=== PATIENT | male | born 1945 | race Caucasian/White ===

== ENCOUNTER 2017-10-14 12:03 | Inpatient (IN) | payer OTHER, MEDICAID, MEDICARE ==
[2017-10-14] VITALS (7 sets, daily range): BP systolic 97–124; BP diastolic 61–73; PULSE 89–104; RESP 18–20; TEMP 96.7–98.1; O2SAT 93–97
[~2017-10-14] VITALS: Ht 180.3 cm; Wt 86.0 kg
[2017-10-14] MEDS ORDERED: SODIUM CHLOR 0.9% 1000 ML INJ 1,000 ML IV ONE ×2 (12:15→12:45)
--- NOTE | 2017-10-14 12:39 | PD ---
HPI Chief Complaint: General Weakness Time Seen by Provider: 12:10 Travel History International Travel<30 days: No Contact w/Intl Traveler<30days: No Traveled to known affect area: No History of Present Illness HPI 72-year-old male the presents to the ED for evaluation of generalized weakness. Patient apparently was found by landlord on his home dischargeable in been able to move. 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 Patient apparently has had a couple falls last one about 3 days ago and he call ambulance to get him back into his bed. Per report given by ambulance apparently patient was on the floor and landlord did not feel comfortable lifting them up so they called the ambulance. Ambulance showed into the house and per the report of the apartment is completely in this repair. Patient apparently had feces as well as urine on his clothing as well as on his bed. Patient himself denies any medical issues. He does appear to be somewhat encephalopathic. Patient also appears to be yellow in skin color as well as on the eye color. I asked the patient if he has ever been told that he has jaundice and he tells me now. Per patient this is new. He is able to answer some questions but does appear to go in and out of confusion. He does tell me that he has not eaten or drinking anything in some time. He cannot really quantify how long. He does have bruises on his left rib cage. He denies any pain of any kind. He is smells heavily of feces and urine. He has no medical history recently and has never been here before. Per patient he takes no medications that he stays in bed because he cannot get up on his own. PFSH Past Medical History Cancer: Yes (prostate) ?: Not Past Surgical History Appendectomy: Yes Social History Alcohol Use: No Tobacco Use: No Substance Use: No Allergies-Medications (Allergen,Severity, Reaction): Coded Allergies: No Known Allergies (Unverified , 10/14/17) Reported Meds & Prescriptions Reported Meds & Active Scripts Active Active Prescriptions or Reported Medications Unobtainable Review of Systems ROS Limitations: Poor Historian Except as stated in HPI: all other systems reviewed are Neg Physical Exam Exam Limitations: Poor Historian Narrative GENERAL: SKIN: Warm and dry. Jaundice noted on the sclera of the eyes as well as in the skin. HEAD: Atraumatic. Normocephalic. EYES: Pupils equal and round 4 mm reactive to light and accommodation. No scleral icterus. No injection or drainage. ENT: No nasal bleeding or discharge. Mucous membranes pink but dry. Tongue is midline. No blood deviation. NECK: Trachea midline. No JVD. CARDIOVASCULAR: Regular rate and rhythm. No murmurs, S3, S4. RESPIRATORY: No accessory muscle use. Clear to auscultation. Breath sounds equal bilaterally. GASTROINTESTINAL: Abdomen soft, non-tender, nondistended. Hepatic and splenic margins not palpable. MUSCULOSKELETAL: Extremities without clubbing, cyanosis, or edema. No obvious deformities. Full range of motion of the upper and lower extremities bilaterally. 2+ pulses bilaterally. NEUROLOGICAL: Awake and alert. No obvious cranial nerve deficits. Motor grossly within normal limits. Five out of 5 muscle strength in the arms and legs. Normal speech. PSYCHIATRIC: Appropriate mood and affect; insight and judgment normal. Data Data Last Documented VS Vital Signs Date Time Temp Pulse Resp B/P (MAP) Pulse Ox O2 Delivery O2 Flow Rate FiO2 10/14/17 16:13 92 18 123/70 (87) 95 Room Air 10/14/17 12:25 98.1 Orders Orders Electrocardiogram (10/14/17 12:15) Complete Blood Count With Diff (10/14/17 12:15) Comprehensive Metabolic Panel (10/14/17 12:15) Ckmb (Isoenzyme) Profile (10/14/17 12:15) Troponin I (10/14/17 12:15) Prothrombin Time / Inr (Pt) (10/14/17 12:15) Act Partial Throm Time (Ptt) (10/14/17 12:15) Blood Culture (10/14/17 12:15) Lipase (10/14/17 12:15) Urinalysis - C+S If Indicated (10/14/17 12:15) Magnesium (Mg) (10/14/17 12:15) Thyroid Stimulating Hormone (10/14/17 12:15) Chest, Single Ap (10/14/17 12:15) Ct Brain W/O Iv Contrast(Rout) (10/14/17 12:15) Iv Access Insert/Monitor (10/14/17 12:15) Ecg Monitoring (10/14/17 12:15) Oximetry (10/14/17 12:15) Orthostatic Vital Signs (10/14/17 12:15) Lactic Acid Sepsis Protocol (10/14/17 12:15) C Diff Toxin Pcr (10/14/17 12:15) Sodium Chlor 0.9% 1000 Ml Inj (Ns 1000 M (10/14/17 12:15) Type And Screen (10/14/17 12:32) Sodium Chlor 0.9% 1000 Ml Inj (Ns 1000 M (10/14/17 12:45) Piperacil-Tazo 3.375 Gm Premix (Zosyn 3. (10/14/17 12:45) Vancomycin Inj (Vancomycin Inj) (10/14/17 12:45) Us Abdomen Gallbladder (10/14/17 ) CKMB (10/14/17 12:26) CKMB% (10/14/17 12:26) Direct Bilirubin (10/14/17 13:38) Ct Abd/Pel W/O Iv Contrast (10/14/17 ) Admit Order (Ed Use Only) (10/14/17 16:19) Consult Gastroenterology (10/14/17 ) Labs Laboratory Tests Test 10/14/17 12:26 10/14/17 15:35 White Blood Count 17.8 TH/MM3 Red Blood Count 4.26 MIL/MM3 Hemoglobin 13.6 GM/DL Hematocrit 39.7 % Mean Corpuscular Volume 93.2 FL Mean Corpuscular Hemoglobin 31.8 PG Mean Corpuscular Hemoglobin Concent 34.1 % Red Cell Distribution Width 14.6 % Platelet Count 118 TH/MM3 Mean Platelet Volume 13.0 FL Neutrophils (%) (Auto) 90.3 % Lymphocytes (%) (Auto) 5.0 % Monocytes (%) (Auto) 2.8 % Eosinophils (%) (Auto) 1.6 % Basophils (%) (Auto) 0.3 % Neutrophils # (Auto) 16.1 TH/MM3 Lymphocytes # (Auto) 0.9 TH/MM3 Monocytes # (Auto) 0.5 TH/MM3 Eosinophils # (Auto) 0.3 TH/MM3 Basophils # (Auto) 0.1 TH/MM3 CBC Comment DIFF FINAL Differential Comment Prothrombin Time 15.6 SEC Prothromb Time International Ratio 1.5 RATIO Activated Partial Thromboplast Time 28.6 SEC Blood Urea Nitrogen 42 MG/DL Creatinine 1.34 MG/DL Random Glucose 182 MG/DL Total Protein 6.4 GM/DL Albumin 2.1 GM/DL Calcium Level 9.1 MG/DL Magnesium Level 2.7 MG/DL Alkaline Phosphatase 251 U/L Aspartate Amino Transf (AST/SGOT) 60 U/L Alanine Aminotransferase (ALT/SGPT) 55 U/L Total Bilirubin 13.1 MG/DL Sodium Level 144 MEQ/L Potassium Level 3.0 MEQ/L Chloride Level 107 MEQ/L Carbon Dioxide Level 25.3 MEQ/L Anion Gap 12 MEQ/L Estimat Glomerular Filtration Rate 52 ML/MIN Lactic Acid Level 3.5 mmol/L 2.9 mmol/L Total Creatine Kinase 102 U/L Creatine Kinase MB 3.4 NG/ML Troponin I LESS THAN 0.02 NG/ML Lipase 94 U/L Thyroid Stimulating Hormone 3rd Gen 0.166 uIU/ML MDM Medical Decision Making Medical Screen Exam Complete: Yes Emergency Medical Condition: Yes Medical Record Reviewed: Yes Interpretation(s) EKG shows sinus rhythm with no sign of acute ischemia and arrhythmia but by me and attending. Last Impressions Head CT 10/14/175 Signed Impressions: Service Date/Time: Saturday, October 14, 2017 13:34 - CONCLUSION: No acute intracranial findings Juan Alberto Bertrand MD Chest X-Ray 10/14/175 Signed Impressions: Service Date/Time: Saturday, October 14, 2017 12:52 - CONCLUSION: No acute cardio pulmonary process. Jeyson Jenkins MD Gall Bladder Ultrasound 10/14/17 0000 Signed Impressions: Service Date/Time: Saturday, October 14, 2017 13:38 - CONCLUSION: 1. Nonvisualization of the gallbladder. Limited visualization of the pancreas. 2. Otherwise negative. Jeyson Jenkins MD Abdomen/Pelvis CT 10/14/17 0000 Signed Impressions: Service Date/Time: Saturday, October 14, 2017 14:27 - CONCLUSION: 1. Liver is incompletely evaluated on the noncontrasted study. Multiple hypodensities near the ok hepatis require further evaluation. These could represent multiple cysts or mass lesions. Ut or contrasted CT or MRI of the abdomen would be recommended. 2. In addition, there is a questionable stone in the expected location of the gallbladder fossa with possible additional 1.1 cm rim calcified stone in the CBD. Anatomic detail is again limited. MRCP of the abdomen could be performed for further characterization. 3. Nonobstructing 6 mm stone in the superior pole of the right kidney. 4. Prominent prostate. 5. 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 Jeyson Jenkins MD CBC & BMP Diagram 10/14/17 12:26 Total Protein 6.4, Albumin 2.1 L, Calcium Level 9.1, Magnesium Level 2.7 H, Alkaline Phosphatase 251 H, Aspartate Amino Transf (AST/SGOT) 60 H, Alanine Aminotransferase (ALT/SGPT) 55, Total Bilirubin 13.1 H troponin and CKMB negative EKG shows sinus rhythm with no sign of acute ischemia and arrhythmia read by me and attending. Lipase within normal limits. Differential Diagnosis Dehydration versus failure to thrive versus jaundice versus acute liver failure versus hemolysis versus hemolytic anemia versus GI bleed versus sepsis versus rhabdomyolysis versus hepatitis Narrative Course 72-year-old male that presents to the ED for evaluation of weakness. Patient was properly examined and was found to have signs and symptoms very concerning for what appears to be likely acute liver failure with failure to thrive. Patient is very icterus and jaundice on exam. Hemoccult was done and was indeterminate but no sign of bleeding noted on the rectum otherwise. At this time labs and imaging were ordered. Patient does appear to be very dry and his oral mucosa appears to be very dry as well. He will be given IV fluids. His blood pressure is also low. She has had multiple falls and he does have bruising from the falls more noted on the left rib cage. Imaging was ordered as well. No sign of abdominal discomfort or pain or hematoma. Labs and imaging showed severely elevated bilirubin as well as what appears to be sepsis with lactic acidosis and elevated white blood cell count. Patient will start antibiotics. At this time recommendations for admission. CT did show multiple masses on the liver concerning for possible tumors. I cannot rule out a stone on the tube. MRCP recommended per radiologist. Case discussed with my attending who agrees with plan. Patient will be admitted. Case discussed with Dr ochoa agreed to admission. GI consult was placed by me. [facility] Point of Care Internal Pos. & Neg. Controls: Passed Fecal Specimen Occult Blood: Positive (indetermiate, dark but not blue per my attending Dr traore) Sepsis Criteria SIRS Criteria (2 or more): Heart rate over 90, WBC > 53038, < 4000 or > 10% bands Sepsis Criteria (SIRS+source): Infect source susp/known Severe Sepsis (+one): Lactate >2 Criteria Outcome: Meets sepsis criteria, Meets severe sepsis criteria Diagnosis Primary Impression: Sepsis Qualified Codes: A41.9 - Sepsis, unspecified organism Additional Impressions: Elevated bilirubin Liver masses Admitting Information Admitting Physician Requests: Admit Scripts Unable to Obtain Active Prescriptions or Reported Meds Lonny Thomason October 14, 2017 12:39
[2017-10-14 12:43] LABS: AUTOMATED NEUTROPHIL # 16.1 TH/MM3 (1.8-7.7); BASOPHIL # 0.1 TH/MM3 (0-0.2); BASOPHIL % 0.3 % (0.0-2.0); EOSINOPHIL # 0.3 TH/MM3 (0-0.4); EOSINOPHIL % 1.6 % (0.0-4.0); HEMATOCRIT 39.7 % (39.0-51.0); HEMOGLOBIN 13.6 GM/DL (13.0-17.0); LYMPHOCYTE # 0.9 TH/MM3 (1.0-4.8); MEAN CELL VOLUME 93.2 FL (80.0-100.0); MEAN CORPUSCULAR HEMOGLOBIN 31.8 PG (27.0-34.0); MEAN CORPUSCULAR HGB CONC 34.1 % (32.0-36.0); MONO % 2.8 % (0.0-8.0); MONOCYTE # 0.5 TH/MM3 (0-0.9); NEUT % 90.3 % (16.0-70.0); PLATELET COUNT 118 TH/MM3 (150-450); RED BLOOD COUNT 4.26 MIL/MM3 (4.50-5.90); RED CELL DISTRIBUTION WIDTH 14.6 % (11.6-17.2); WHITE BLOOD COUNT 17.8 TH/MM3 (4.0-11.0)
[2017-10-14] MEDS ORDERED: PIPERACIL-TAZO 3.375 GM PREMIX 50 ML IV ONE (12:45)
[2017-10-14] MEDS ORDERED: VANCOMYCIN INJ 1,000 MG in SODIUM CHLOR 0.9% 250 ML INJ 250 ML IV ONE (12:45)
[2017-10-14 12:51] LABS: INTERNATIONAL NORMALIZED RATIO 1.5 RATIO; PROTHROMBIN TIME - PATIENT 15.6 SEC (9.8-11.6)
[2017-10-14 13:05] LABS: LACTIC ACID SEPSIS PROTOCOL 3.5 mmol/L (0.4-2.0)
--- NOTE | 2017-10-14 13:19 | RADRPT ---
EXAM DATE/TIME: 10/14/2017 12:52 [facility] COMPARISON: No previous studies available for comparison. INDICATIONS : Fever. MEDICAL HISTORY : Carcinoma, prostatic. SURGICAL HISTORY : Appendectomy. ENCOUNTER: Initial ACUITY: 1 day PAIN SCORE: 0/10 LOCATION: Bilateral chest FINDINGS: A single view of the chest demonstrates the lungs to be symmetrically aerated without evidence of mas s, infiltrate or effusion. The cardiomediastinal contours are unremarkable. Osseous structures are intact with some degenerative spurring of the dorsal spine. CONCLUSION: No acute cardio pulmonary process. Jeyson Jenkins MD on October 14, 2017 at 13:16 Board Certified Radiologist. This report was verified electronically.
[2017-10-14 13:26] LABS: ALBUMIN 2.1 GM/DL (3.4-5.0); ALKALINE PHOSPHATASE 251 U/L (45-117); ALT (GPT) 55 U/L (12-78); AST (GOT) 60 U/L (15-37); BICARBONATE 25.3 MEQ/L (21.0-32.0); BLOOD UREA NITROGEN 42 MG/DL (7-18); CALCIUM 9.1 MG/DL (8.5-10.1); CHLORIDE 107 MEQ/L (98-107); CREATININE 1.34 MG/DL (0.60-1.30); GLOMERULAR FILTRATION RATE 52 ML/MIN (>89); GLUCOSE,RANDOM 182 MG/DL (74-106); MAGNESIUM 2.7 MG/DL (1.5-2.5); SODIUM (NA) 144 MEQ/L (136-145); TOTAL BILIRUBIN ADULT 13.1 MG/DL (0.2-1.0); TOTAL PROTEIN 6.4 GM/DL (6.4-8.2); TROPONIN I LESS THAN 0.02 NG/ML (0.02-0.05)
--- NOTE | 2017-10-14 14:14 | RADRPT ---
EXAM DATE/TIME: 10/14/2017 13:34 [facility] COMPARISON: No previous studies available for comparison. INDICATIONS : Weakness. RADIATION DOSE: 45.81 CTDIvol (mGy) MEDICAL HISTORY : Carcinoma, prostate. SURGICAL HISTORY : None. ENCOUNTER: Initial ACUITY: 1 day PAIN SCALE: 0/10 LOCATION: cranial TECHNIQUE: Multiple contiguous axial images were obtained of the head. Using automated exposure control and adj ustment of the mA and/or kV according to patient size, radiation dose was kept as low as reasonably a chievable to obtain optimal diagnostic quality images. DICOM format image data is available electro nically for review and comparison. FINDINGS: Ventricles are symmetric and normal. No abnormal extra-axial fluid collections are identified. There is no evidence of intracranial hemorrhage or mass. There is nothing to suggest acute infarction. The extracranial structures are benign and intact. Minimal polypoid mucosal thickening noted in the right maxillary sinus. CONCLUSION: No acute intracranial findings Juan Alberto Bertrand MD on October 14, 2017 at 14:11 Board Certified Radiologist. This report was verified electronically.
--- NOTE | 2017-10-14 15:15 | RADRPT ---
EXAM DATE/TIME: 10/14/2017 13:38 [facility] COMPARISON: No previous studies available for comparison. INDICATIONS : Right upper quadrant pain. MEDICAL HISTORY : Carcinoma, prostate. SURGICAL HISTORY : Appendectomy. ENCOUNTER: Initial ACUITY: 1 day PAIN SCORE: 2/10 LOCATION: Right upper quadrant MEASUREMENTS: LIVER: 17.2 cm length COMMON DUCT: 3 mm RIGHT KIDNEY: 11.2 x 5.3 x 1.5 cm FINDINGS: LIVER: Normal echotexture without focal lesion or ductal dilatation. COMMON DUCT: No intraluminal mass or stone visualized. GALLBLADDER: Not visualized PANCREAS: The visualized portions are within normal limits. RIGHT KIDNEY: No evidence of hydronephrosis, stone, or mass. CONCLUSION: 1. Nonvisualization of the gallbladder. Limited visualization of the pancreas. 2. Otherwise negative. Jeyson Jenkins MD on October 14, 2017 at 15:12 Board Certified Radiologist. This report was verified electronically.
--- NOTE | 2017-10-14 15:48 | RADRPT ---
EXAM DATE/TIME: 10/14/2017 14:27 [facility] COMPARISON: US ABDOMEN - GALLBLADDER, October 14, 2017, 13:38. INDICATIONS : Found on floor, patient is jaundice ORAL CONTRAST: No oral contrast ingested. RADIATION DOSE: 13.87 CTDIvol (mGy) MEDICAL HISTORY : Carcinoma, prostate. SURGICAL HISTORY : Appendectomy. ENCOUNTER: Initial ACUITY: 1 day PAIN SCALE: Non-responsive LOCATION: abdomen TECHNIQUE: Volumetric scanning of the abdomen and pelvis was performed. Using automated exposure control and ad justment of the mA and/or kV according to patient size, radiation dose was kept as low as reasonably achievable to obtain optimal diagnostic quality images. DICOM format image data is available electro nically for review and comparison. FINDINGS: LOWER LUNGS: The visualized lower lungs are clear. LIVER: Multiple hypodense areas in the right hepatic lobe near the ok hepatis a nonspecific. Anatomic det ail of the ok hepatis and gallbladder region is extremely limited due to motion artifact. There is a calcific density measuring 1.2 cm in diameter which may be in the region of the gallbladder fundus and an additional 1.1 cm rim calcified stone in the expected location of the CBD. The CBD at the por ta hepatis may be somewhat prominent. The due to motion artifact, the gallbladder itself is very diff icult to identify. SPLEEN: Normal size without lesion. PANCREAS: Fatty replacement of the pancreatic parenchyma. KIDNEYS: Normal in size and shape. 6 mm nonobstructing stone in the superior pole of the right kidney. ADRENAL GLANDS: Within normal limits. VASCULAR: There is no aortic aneurysm. BOWEL/MESENTERY: The stomach, small bowel, and colon demonstrate no acute abnormality. There is no free intraperitone al air or fluid. 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 ABDOMINAL WALL: Within normal limits. RETROPERITONEUM: There is no lymphadenopathy. BLADDER: Multiple gallbladder stones.. REPRODUCTIVE: Prostate is prominent at 5.6 cm with dystrophic type calcification. INGUINAL: There is no lymphadenopathy or hernia. MUSCULOSKELETAL: Probable bone islands in the left ilium. Facet hypertrophy in the lower lumbar spine and lumbosacral junction. CONCLUSION: 1. Liver is incompletely evaluated on the noncontrasted study. Multiple hypodensities near the ok hepatis require further evaluation. These could represent multiple cysts or mass lesions. Ut or contr asted CT or MRI of the abdomen would be recommended. 2. In addition, there is a questionable stone in the expected location of the gallbladder fossa with possible additional 1.1 cm rim calcified stone in the CBD. Anatomic detail is again limited. MRCP of the abdomen could be performed for further characterization. 3. Nonobstructing 6 mm stone in the superior pole of the right kidney. 4. Prominent prostate. 5. 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 Jeyson Jenkins MD on October 14, 2017 at 15:31 Board Certified Radiologist. This report was verified electronically.
--- NOTE | 2017-10-14 16:10 | PD ---
Data Data Last Documented VS Vital Signs Date Time Temp Pulse Resp B/P (MAP) Pulse Ox O2 Delivery O2 Flow Rate FiO2 10/14/17 13:00 104 20 97 Room Air 10/14/17 12:25 98.1 Orders Orders Electrocardiogram (10/14/17 12:15) Complete Blood Count With Diff (10/14/17 12:15) Comprehensive Metabolic Panel (10/14/17 12:15) Ckmb (Isoenzyme) Profile (10/14/17 12:15) Troponin I (10/14/17 12:15) Prothrombin Time / Inr (Pt) (10/14/17 12:15) Act Partial Throm Time (Ptt) (10/14/17 12:15) Blood Culture (10/14/17 12:15) Lipase (10/14/17 12:15) Urinalysis - C+S If Indicated (10/14/17 12:15) Magnesium (Mg) (10/14/17 12:15) Thyroid Stimulating Hormone (10/14/17 12:15) Chest, Single Ap (10/14/17 12:15) Ct Brain W/O Iv Contrast(Rout) (10/14/17 12:15) Iv Access Insert/Monitor (10/14/17 12:15) Ecg Monitoring (10/14/17 12:15) Oximetry (10/14/17 12:15) Orthostatic Vital Signs (10/14/17 12:15) Lactic Acid Sepsis Protocol (10/14/17 12:15) C Diff Toxin Pcr (10/14/17 12:15) Sodium Chlor 0.9% 1000 Ml Inj (Ns 1000 M (10/14/17 12:15) Type And Screen (10/14/17 12:32) Sodium Chlor 0.9% 1000 Ml Inj (Ns 1000 M (10/14/17 12:45) Piperacil-Tazo 3.375 Gm Premix (Zosyn 3. (10/14/17 12:45) Vancomycin Inj (Vancomycin Inj) (10/14/17 12:45) Us Abdomen Gallbladder (10/14/17 ) CKMB (10/14/17 12:26) CKMB% (10/14/17 12:26) Direct Bilirubin (10/14/17 13:38) Ct Abd/Pel W/O Iv Contrast (10/14/17 ) Labs Laboratory Tests Test 10/14/17 12:26 10/14/17 15:35 White Blood Count 17.8 TH/MM3 Red Blood Count 4.26 MIL/MM3 Hemoglobin 13.6 GM/DL Hematocrit 39.7 % Mean Corpuscular Volume 93.2 FL Mean Corpuscular Hemoglobin 31.8 PG Mean Corpuscular Hemoglobin Concent 34.1 % Red Cell Distribution Width 14.6 % Platelet Count 118 TH/MM3 Mean Platelet Volume 13.0 FL Neutrophils (%) (Auto) 90.3 % Lymphocytes (%) (Auto) 5.0 % Monocytes (%) (Auto) 2.8 % Eosinophils (%) (Auto) 1.6 % Basophils (%) (Auto) 0.3 % Neutrophils # (Auto) 16.1 TH/MM3 Lymphocytes # (Auto) 0.9 TH/MM3 Monocytes # (Auto) 0.5 TH/MM3 Eosinophils # (Auto) 0.3 TH/MM3 Basophils # (Auto) 0.1 TH/MM3 CBC Comment DIFF FINAL Differential Comment Prothrombin Time 15.6 SEC Prothromb Time International Ratio 1.5 RATIO Activated Partial Thromboplast Time 28.6 SEC Blood Urea Nitrogen 42 MG/DL Creatinine 1.34 MG/DL Random Glucose 182 MG/DL Total Protein 6.4 GM/DL Albumin 2.1 GM/DL Calcium Level 9.1 MG/DL Magnesium Level 2.7 MG/DL Alkaline Phosphatase 251 U/L Aspartate Amino Transf (AST/SGOT) 60 U/L Alanine Aminotransferase (ALT/SGPT) 55 U/L Total Bilirubin 13.1 MG/DL Sodium Level 144 MEQ/L Potassium Level 3.0 MEQ/L Chloride Level 107 MEQ/L Carbon Dioxide Level 25.3 MEQ/L Anion Gap 12 MEQ/L Estimat Glomerular Filtration Rate 52 ML/MIN Lactic Acid Level 3.5 mmol/L Total Creatine Kinase 102 U/L Creatine Kinase MB 3.4 NG/ML Troponin I LESS THAN 0.02 NG/ML Lipase 94 U/L Thyroid Stimulating Hormone 3rd Gen 0.166 uIU/ML [facility] Supervised Visit with MY: Yes Interpretation(s) Afebrile, mild tachycardia, normotensive Leukocytosis Thrombocytopenia Acute kidney injury Lactic acid is 3.5 Total bilirubin is 13 Last [address] 10/14/17 1215 Signed Impressions: Service Date/Time: Saturday, October 14, 2017 13:34 - CONCLUSION: No acute intracranial findings Juan Alberto Bertrand MD Chest X-Ray 10/14/17 1215 Signed Impressions: Service Date/Time: Saturday, October 14, 2017 12:52 - CONCLUSION: No acute cardio pulmonary process. Jeyson Jenkins MD Gall Bladder Ultrasound 10/14/17 0000 Signed Impressions: Service Date/Time: Saturday, October 14, 2017 13:38 - CONCLUSION: 1. Nonvisualization of the gallbladder. Limited visualization of the pancreas. 2. Otherwise negative. Jeyson Jenkins MD Abdomen/Pelvis CT 10/14/17 0000 Signed Impressions: Service Date/Time: Saturday, October 14, 2017 14:27 - CONCLUSION: 1. Liver is incompletely evaluated on the noncontrasted study. Multiple hypodensities near the ok hepatis require further evaluation. These could represent multiple cysts or mass lesions. Ut or contrasted CT or MRI of the abdomen would be recommended. 2. In addition, there is a questionable stone in the expected location of the gallbladder fossa with possible additional 1.1 cm rim calcified stone in the CBD. Anatomic detail is again limited. MRCP of the abdomen could be performed for further characterization. 3. Nonobstructing 6 mm stone in the superior pole of the right kidney. 4. Prominent prostate. 5. 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 Jeyson Jenkins MD Narrative Course The history, exam, and medical decision-making in the associated midlevel provider note were completed with my assistance. I reviewed and agree with the findings presented. I attest that I had a [id number] encounter with the patient on the same day, and personally performed and documented my assessment and findings in the medical record. *My assessment and Findings: This is a 72-year-old male who was found by his landlord having been weak and unable to ambulate. He has been falling frequently. He is ill-appearing, with temporal wasting and jaundiced on exam. He was placed on a monitor and an IV was established. Labs demonstrate a marked leukocytosis. Cultures were obtained and patient was started on broad- spectrum antibiotics. His lactic acid was 3.5. He received 2 L of IV fluid. CT demonstrates possible mass lesions in the liver as well as a calcified stone in the common bile duct both which could be explanations of the patient's jaundice. Patient will be admitted for continued GI evaluation and IV antibiotic therapy. Scripts Unable to Obtain Active Prescriptions or Reported Meds Moira Patel MD October 14, 2017 16:10
[2017-10-14] MEDS ORDERED: POTASSIUM BICARBONATE 25 MEQ EFFERVESCENT TAB PO ONE (17:15)
--- NOTE | 2017-10-14 17:42 | HHI.HP ---
[facility] Service [place] [facility] Primary Care Physician No Primary Care Physician Admission Diagnosis acute sepsis, acute jauncide, cholecystitis? Diagnoses: Chief Complaint: Generalized weakness Travel History International Travel<30 Days: No Contact w/Intl Traveler <30 Da: No Traveled to Known Affected Are: No Sepsis Criteria SIRS Criteria (2 or more): Heart rate over 90, WBC > 32197, < 4000 or > 10% bands Sepsis Criteria (SIRS+source): Infect source susp/known Severe Sepsis (+one): Lactate >2 Criteria Outcome: Meets severe sepsis criteria History of Present Illness Patient is a 72-year-old male who states he lives by himself in an apartment, no PCP who states that about 10 days prior to admission patient noted initially having diarrhea stools brown watery S with poor p.o. appetite. Patient denies any fever or chills however feels very weak. Finally yesterday he called his landlord who in turn when saw him called ambulance and was brought in here. When asked why she is he said that he needed to be here because I do not feel good. He states that on several occasions in the past his blood blood pressures were low. On evaluation here the ER was noted to be jaundiced with elevated white count. Patient admitted for further evaluation Patient states history of prostate surgery secondary to "enlarged prostate" Review of Systems Constitutional: COMPLAINS OF: Fever, Weight loss Endocrine: DENIES: Heat/cold intolerance, Polydipsia, Polyuria, Polyphagia Eyes: DENIES: Blurred vision, Diplopia, Eye inflammation, Eye pain, Vision loss , Photosensitivity, Double Vision Ears, nose, mouth, throat: DENIES: Tinnitus, Hearing loss, Vertigo, Nasal discharge, Oral lesions, Throat pain, Hoarseness, Ear Pain, Running Nose, Epistaxis, Sinus Pain, Toothache, Odynophagia Respiratory: DENIES: Apneas, Cough, Snoring, Wheezing, Hemoptysis, Sputum production, Shortness of breath Cardiovascular: DENIES: Chest pain, Palpitations, Syncope, Dyspnea on Exertion , PND, Lower Extremity Edema, Orthopnea, Claudication Gastrointestinal: COMPLAINS OF: Diarrhea Genitourinary: DENIES: Sexual dysfunction, Urinary frequency, Urinary incontinence, Urgency, Hematuria, Dysuria, Nocturia, Penile Discharge, Testicular Pain, Testicular Swelling Musculoskeletal: DENIES: Joint pain, Muscle aches, Stiffness, Joint Swelling, Back pain, Neck pain Integumentary: DENIES: Abnormal pigmentation, Nail changes, Pruritus, Rash Hematologic/lymphatic: DENIES: Bruising, Lymphadenopathy Immunologic/allergic: DENIES: Eczema, Urticaria Neurologic: DENIES: Abnormal gait, Headache, Localized weakness, Paresthesias, Seizures, Speech Problems, Tremor, Poor Balance Psychiatric: DENIES: Anxiety, Confusion, Mood changes, Depression, Hallucinations, Agitation, Suicidal Ideation, Homicidal Ideation, Delusions Past Family Social History Past Medical History Enlarged prostate Past Surgical History Prostate surgery Reported Medications Denies taking any medications Allergies: Coded Allergies: No Known Allergies (Unverified , 10/14/17) Family History Noncontributory Social History Patient states never smoked and never drank alcohol denies any history of substance abuse Physical Exam Vital Signs Vital Signs Date Time Temp Pulse Resp B/P (MAP) Pulse Ox O2 Delivery O2 Flow Rate FiO2 10/14/17 17:00 72 18 124/70 (88) 98 10/14/17 16:13 92 18 123/70 (87) 95 Room Air 10/14/17 13:00 104 20 97 Room Air 10/14/17 12:25 98.1 98 20 97/61 (73) 97 Room Air 10/14/17 12:25 90 18 98 Room Air 10/14/17 12:20 98.1 93 18 97/61 (73) 97 Physical Exam GENERAL: Weak looking, jaundiced awake and alert oriented 3, SKIN: No rashes, Cool and dry. HEAD: Atraumatic. Normocephalic. No temporal or scalp tenderness. EYES: Pupils equal round and reactive. Extraocular motions intact. Positive icteric nausea ENT: Nose without bleeding, Throat without erythema, tonsillar hypertrophy or exudate. Uvula midline. Airway patent. NECK: Trachea midline. No JVD or lymphadenopathy. Supple, nontender, no meningeal signs. CARDIOVASCULAR: Regular rhythm without murmurs, heart rate 105. no gallops, or rubs. RESPIRATORY: Clear to auscultation. Breath sounds equal bilaterally. No wheezes , rales, or rhonchi. GASTROINTESTINAL: Abdomen soft, non-tender, nondistended. Flabby, questionable fluid wave no guarding. No scrotal swelling or edema MUSCULOSKELETAL: Extremities without clubbing, cyanosis, or edema. No joint tenderness, effusion, or edema noted. No calf tenderness. Negative Homans sign bilaterally. NEUROLOGICAL: Awake and alert. Cranial nerves II through XII intact. Motor and sensory grossly within normal limits. Five out of 5 muscle strength in all muscle groups. Normal speech. Laboratory Laboratory Tests Test 10/14/17 12:26 10/14/17 15:35 White Blood Count 17.8 Red Blood Count 4.26 Hemoglobin 13.6 Hematocrit 39.7 Mean Corpuscular Volume 93.2 Mean Corpuscular Hemoglobin 31.8 Mean Corpuscular Hemoglobin Concent 34.1 Red Cell Distribution Width 14.6 Platelet Count 118 Mean Platelet Volume 13.0 Neutrophils (%) (Auto) 90.3 Lymphocytes (%) (Auto) 5.0 Monocytes (%) (Auto) 2.8 Eosinophils (%) (Auto) 1.6 Basophils (%) (Auto) 0.3 Neutrophils # (Auto) 16.1 Lymphocytes # (Auto) 0.9 Monocytes # (Auto) 0.5 Eosinophils # (Auto) 0.3 Basophils # (Auto) 0.1 CBC Comment DIFF FINAL Differential Comment Prothrombin Time 15.6 Prothromb Time International Ratio 1.5 Activated Partial Thromboplast Time 28.6 Blood Urea Nitrogen 42 Creatinine 1.34 Random Glucose 182 Total Protein 6.4 Albumin 2.1 Calcium Level 9.1 Magnesium Level 2.7 Alkaline Phosphatase 251 Aspartate Amino Transf (AST/SGOT) 60 Alanine Aminotransferase (ALT/SGPT) 55 Total Bilirubin 13.1 Sodium Level 144 Potassium Level 3.0 Chloride Level 107 Carbon Dioxide Level 25.3 Anion Gap 12 Estimat Glomerular Filtration Rate 52 Lactic Acid Level 3.5 2.9 Total Creatine Kinase 102 Creatine Kinase MB 3.4 Troponin I LESS THAN 0.02 Lipase 94 Thyroid Stimulating Hormone 3rd Gen 0.166 Date/Time Source Procedure Growth Status 10/14/17 12:26 Blood Peripheral Aerobic Blood Culture Pending Received 10/14/17 12:26 Blood Peripheral Anaerobic Blood Culture Pending Received Result Diagram: 10/14/17 1226 10/14/17 1226 Imaging Last Impressions Head CT 10/14/17 1215 Signed Impressions: Service Date/Time: Saturday, October 14, 2017 13:34 - CONCLUSION: No acute intracranial findings Juan Alberto Bertrand MD Chest X-Ray 10/14/17 1215 Signed Impressions: Service Date/Time: Saturday, October 14, 2017 12:52 - CONCLUSION: No acute cardio pulmonary process. Jeyson Jenkins MD Gall Bladder Ultrasound 10/14/17 0000 Signed Impressions: Service Date/Time: Saturday, October 14, 2017 13:38 - CONCLUSION: 1. Nonvisualization of the gallbladder. Limited visualization of the pancreas. 2. Otherwise negative. Jeyson Jenkins MD Abdomen/Pelvis CT 10/14/17 0000 Signed Impressions: Service Date/Time: Saturday, October 14, 2017 14:27 - CONCLUSION: 1. Liver is incompletely evaluated on the noncontrasted study. Multiple hypodensities near the ok hepatis require further evaluation. These could represent multiple cysts or mass lesions. Ut or contrasted CT or MRI of the abdomen would be recommended. 2. In addition, there is a questionable stone in the expected location of the gallbladder fossa with possible additional 1.1 cm rim calcified stone in the CBD. Anatomic detail is again limited. MRCP of the abdomen could be performed for further characterization. 3. Nonobstructing 6 mm stone in the superior pole of the right kidney. 4. Prominent prostate. 5. 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 Jeyson Jenkins MD Caprini VTE Risk Assessment Caprini VTE Risk Assessment: Mod/High Risk (score >= 2) VTE Pharm Contraindication: possible procedure Caprini Risk Assessment Model Point Value = 1 Point Value = 2 Point Value = 3 Point Value = 5 Age 41-60 Minor surgery BMI > 25 kg/m2 Swollen legs Varicose veins or History of unexplained or recurrent spontaneous Oral contraceptives or hormone replacement Sepsis (< 1 month) Serious lung disease, including pneumonia (< 1 month) Abnormal pulmonary function Acute myocardial infarction Congestive heart failure (< 1 month) History of inflammatory bowel disease Medical patient at bed rest Age 61-74 Arthroscopic surgery Major open surgery (> 45 min) Laparoscopic surgery (> 45 min) Malignancy Confined to bed (> 72 hours) Immobilizing plaster cast Central venous access Age >= 75 History of VTE Family history of VTE Factor V Leiden Prothrombin [id number] Lupus anticoagulant Anticardiolipin antibodies Elevated serum homocysteine Heparin-induced thrombocytopenia Other congenital or acquired thrombophilia Stroke (< 1 month) Elective arthroplasty Hip, pelvis, or leg fracture Acute spinal cord injury (< 1 month) Prophylaxis Regimen Total Risk Factor Score Risk Level Prophylaxis Regimen 0-1 Low Early ambulation 2 Moderate Order ONE of the following: *Sequential Compression Device (SCD) *Heparin 5000 units SQ BID 3-4 Higher Order ONE of the following medications: *Heparin 5000 units SQ TID *Enoxaparin/Lovenox 40 mg SQ daily (WT < 150 kg, CrCl > 30 mL/min) *Enoxaparin/Lovenox 30 mg SQ daily (WT < 150 kg, CrCl > 10-29 mL/min) *Enoxaparin/Lovenox 30 mg SQ BID (WT < 150 kg, CrCl > 30 mL/min) AND/OR *Sequential Compression Device (SCD) 5 or more Highest Order ONE of the following medications: *Heparin 5000 units SQ TID (Preferred with Epidurals) *Enoxaparin/Lovenox 40 mg SQ daily (WT < 150 kg, CrCl > 30 mL/min) *Enoxaparin/Lovenox 30 mg SQ daily (WT < 150 kg, CrCl > 10-29 mL/min) *Enoxaparin/Lovenox 30 mg SQ BID (WT < 150 kg, CrCl > 30 mL/min) AND *Sequential Compression Device (SCD) Assessment and Plan Assessment and Plan 72-year-old male presenting with generalized weakness cachexia poor p.o. appetite jaundice elevated LFTs Sepsis secondary to biliary pathology possible cholangitis rule out underlying malignancy. Start patient on IV Zosyn every 6 Follow LFTs Patient received 2 L IV bolus at ER. Start maintenance IV fluids 100 cc an hour Gastroenterology consult will defer to them whether to proceed with MRCP or ERCP Get alpha-fetoprotein Check UA Acute kidney injury secondary to sepsis and dehydration History of BPH Start IV fluids Monitor BMP closely. Olivo was placed by ER will keep Olivo to do accurate I&O's Hypokalemia replaced with p.o. potassium 1 IV fluids with potassium Case management for discharge planning Dietitian consult Teds and SCDs for now. Will hold off on chemical prophylaxis may need procedure tomorrow PPI for GI prophylaxis Code Status When asked about CODE STATUS about CPR. Patient states he wants to be shocked one-time Discussed Condition With Patient Physician Certification 2 Midnight Certification Type: Admission for Inpatient Services Order for Inpatient Services The services are ordered in accordance with Medicare regulations or non- Medicare payer requirements, as applicable. In the case of services not specified as inpatient-only, they are appropriately provided as inpatient services in accordance with the 2-midnight benchmark. Estimated LOS (days): 3 days is the estimated time the patient will need to remain in the hospital, assuming treatment plan goals are met and no additional complications. Post-Hospital Plan: Not yet determined Olman Friedman MD October 14, 2017 17:42
[2017-10-14 18:00] LABS: BILIRUBIN, URINE LARGE (NEG); BLOOD, URINE LARGE (NEG); GLUCOSE,URINE 100 mg/dL (NEG); KETONE, URINE TRACE mg/dL (NEG); NITRITE,URINE POS (NEG); URINE LEUKOCYTE ESTERASE LARGE (NEG)
[2017-10-14 18:12] LABS: AMORPHOUS SEDIMENT, URINE RARE; BACTERIA, URINE MANY /hpf; MUCUS URINE MANY /lpf (OCC)
[2017-10-14 18:13] LABS: URINE COLOR BROWN (YELLW/STRAW)
[2017-10-14] MEDS: D5-NS + KCL 20 MEQ INJ 1,000 ML IV SCH (18:56)
[2017-10-14] MEDS: PANTOPRAZOLE SOD 20 MG DELAYED RELEASE TAB PO SCH (18:59)
[2017-10-14] MEDS ORDERED: PHYTONADIONE 10 MG/ML VIAL SQ ONE (19:45)
[2017-10-15 00:25] VITALS: BP 116/65; PULSE 89; RESP 18; TEMP 98.8; O2SAT 95
[2017-10-15] MEDS: D5-NS + KCL 20 MEQ INJ 1,000 ML IV SCH (03:15)
[2017-10-15 07:25] LABS: AUTOMATED NEUTROPHIL # 11.5 TH/MM3 (1.8-7.7); BASOPHIL % 0.1 % (0.0-2.0); EOSINOPHIL # 0.1 TH/MM3 (0-0.4); EOSINOPHIL % 0.4 % (0.0-4.0); HEMATOCRIT 38.6 % (39.0-51.0); HEMOGLOBIN 12.9 GM/DL (13.0-17.0); LYMPH % 6.7 % (9.0-44.0); LYMPHOCYTE # 0.9 TH/MM3 (1.0-4.8); MEAN CELL VOLUME 94.4 FL (80.0-100.0); MEAN CORPUSCULAR HEMOGLOBIN 31.5 PG (27.0-34.0); MEAN CORPUSCULAR HGB CONC 33.3 % (32.0-36.0); MEAN PLATELET VOLUME 12.1 FL (7.0-11.0); MONOCYTE # 0.5 TH/MM3 (0-0.9); NEUT % 88.8 % (16.0-70.0); PLATELET COUNT 110 TH/MM3 (150-450); RED BLOOD COUNT 4.09 MIL/MM3 (4.50-5.90); RED CELL DISTRIBUTION WIDTH 15.1 % (11.6-17.2); WHITE BLOOD COUNT 12.9 TH/MM3 (4.0-11.0)
[2017-10-15 07:26] LABS: HEMATOCRIT 38.3 % (39.0-51.0); HEMOGLOBIN 12.7 GM/DL (13.0-17.0); MEAN CELL VOLUME 94.3 FL (80.0-100.0); MEAN CORPUSCULAR HEMOGLOBIN 31.4 PG (27.0-34.0); MEAN CORPUSCULAR HGB CONC 33.3 % (32.0-36.0); MEAN PLATELET VOLUME 12.2 FL (7.0-11.0); PLATELET COUNT 112 TH/MM3 (150-450); RED BLOOD COUNT 4.06 MIL/MM3 (4.50-5.90); RED CELL DISTRIBUTION WIDTH 15.4 % (11.6-17.2); WHITE BLOOD COUNT 13.3 TH/MM3 (4.0-11.0)
[2017-10-15 07:30] LABS: INTERNATIONAL NORMALIZED RATIO 1.4 RATIO; PROTHROMBIN TIME - PATIENT 13.7 SEC (9.8-11.6)
[2017-10-15 07:56] LABS: CARCINOEMBRYONIC ANTIGEN 3.1 NG/ML (0.2-5.0)
[2017-10-15 08:00] VITALS: BP 111/63; PULSE 77; RESP 18; TEMP 97.4; O2SAT 99
[2017-10-15 08:24] LABS: ALKALINE PHOSPHATASE 197 U/L (45-117); ALT (GPT) 44 U/L (12-78); AST (GOT) 35 U/L (15-37); BICARBONATE 26.2 MEQ/L (21.0-32.0); BLOOD UREA NITROGEN 36 MG/DL (7-18); CALCIUM 9.3 MG/DL (8.5-10.1); CHLORIDE 115 MEQ/L (98-107); CREATININE 0.93 MG/DL (0.60-1.30); GLOMERULAR FILTRATION RATE 80 ML/MIN (>89); GLUCOSE,RANDOM 154 MG/DL (74-106); SODIUM (NA) 151 MEQ/L (136-145); TOTAL BILIRUBIN ADULT 6.9 MG/DL (0.2-1.0)
[2017-10-15] MEDS ORDERED: POTASSIUM CHLORIDE 20 MEQ CONTROLLED RELEASE TAB PO ONE (09:00)
[2017-10-15] MEDS: PANTOPRAZOLE SOD 20 MG DELAYED RELEASE TAB PO SCH (09:04)
[2017-10-15] MEDS: INSULIN ASPART SUPPLEMENTAL SCALE SQ SCH ×3 (10:56→20:24)
[2017-10-15] MEDS ORDERED: DEXTROSE 50% IN WATER 50 ML VIAL(D50) IV PUSH PRN (11:00)
[2017-10-15] MEDS ORDERED: GLUCAGON 1 MG/ML VIAL OTHER PRN (11:00)
--- NOTE | 2017-10-15 11:13 | HHI.PR ---
Subjective Remarks The patient was resting comfortably in bed. He was about to go for MRI. He denied any abdominal pain. He said he has been losing weight since the . He has not been vomiting recently. Discussed with nursing at the bedside. Objective Vitals Vital Signs Date Time Temp Pulse Resp B/P (MAP) Pulse Ox O2 Delivery O2 Flow Rate FiO2 10/15/17 00:25 98.8 89 18 116/65 (82) 95 10/14/17 20:37 97.7 89 18 97/73 (81) 96 10/14/17 18:07 96.7 95 18 112/73 (86) 93 10/14/17 17:00 72 18 124/70 (88) 98 10/14/17 16:13 92 18 123/70 (87) 95 Room Air 10/14/17 13:00 104 20 97 Room Air 10/14/17 12:25 98.1 98 20 97/61 (73) 97 Room Air 10/14/17 12:25 90 18 98 Room Air 10/14/17 12:20 98.1 93 18 97/61 (73) 97 I/O 10/14/17 10/14/17 10/14/17 10/15/17 10/15/17 10/15/17 07:00 15:00 23:00 07:00 15:00 23:00 Intake Total 2050 ml 250 ml Output Total 1500 ml Balance 2050 ml 250 ml -1500 ml Intake IV Total 2050 ml 250 ml Output Urine Total 1500 ml # Bowel Movements 4 Result Diagram: 10/15/17 0632 10/15/17 0632 Imaging Last Impressions Head CT 10/14/175 Signed Impressions: Service Date/Time: Saturday, October 14, 2017 13:34 - CONCLUSION: No acute intracranial findings Juan Alberto Bertrand MD Chest X-Ray 10/14/171214 Signed Impressions: Service Date/Time: Saturday, October 14, 2017 12:52 - CONCLUSION: No acute cardio pulmonary process. Jeyson Jenkins MD Gall Bladder Ultrasound 10/14/17 0000 Signed Impressions: Service Date/Time: Saturday, October 14, 2017 13:38 - CONCLUSION: 1. Nonvisualization of the gallbladder. Limited visualization of the pancreas. 2. Otherwise negative. Jeyson Jenkins MD Abdomen/Pelvis CT 10/14/17 0000 Signed Impressions: Service Date/Time: Saturday, October 14, 2017 14:27 - CONCLUSION: 1. Liver is incompletely evaluated on the noncontrasted study. Multiple hypodensities near the ok hepatis require further evaluation. These could represent multiple cysts or mass lesions. Ut or contrasted CT or MRI of the abdomen would be recommended. 2. In addition, there is a questionable stone in the expected location of the gallbladder fossa with possible additional 1.1 cm rim calcified stone in the CBD. Anatomic detail is again limited. MRCP of the abdomen could be performed for further characterization. 3. Nonobstructing 6 mm stone in the superior pole of the right kidney. 4. Prominent prostate. 5. 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 SKIN: No rashes, Cool and dry. HEAD: Atraumatic. Normocephalic. No temporal or scalp tenderness. EYES: Pupils equal round and reactive. Extraocular motions intact. Positive icteric nausea ENT: Nose without bleeding, Throat without erythema, tonsillar hypertrophy or exudate. Uvula midline. Airway patent. NECK: Trachea midline. No JVD or lymphadenopathy. Supple, nontender, no meningeal signs. CARDIOVASCULAR: Regular rhythm without murmurs, gallops, or rubs. RESPIRATORY: Clear to auscultation. Breath sounds equal bilaterally. No wheezes , rales, or rhonchi. GASTROINTESTINAL: Abdomen soft, non-tender, nondistended. MUSCULOSKELETAL: Extremities without clubbing, cyanosis, or edema. No joint tenderness, effusion, or edema noted. NEUROLOGICAL: Awake and alert. Cranial nerves II through XII intact. Motor and sensory grossly within normal limits. Five out of 5 muscle strength in all muscle groups. Normal speech. A/P Assessment and Plan 72-year-old male presenting with generalized weakness cachexia poor p.o. appetite jaundice elevated LFTs Sepsis/ bacteremia Secondary to biliary pathology or UTI. GNR in blood culture bottles. - Start patient on IV Zosyn every 6. - Follow LFTs. - ID consult. GI CT abdomen: Multiple hypodensities near the ok hepatis require further evaluation; These could represent multiple cysts or mass lesions; In addition, there is a questionable stone in the expected location of the gallbladder fossa with possible additional 1.1 cm rim calcified stone in the CBD. - Gastroenterology consulted. MRI ordered. - Get alpha-fetoprotein. - soft diet for now. Acute kidney injury/ Hypernatremia Secondary to sepsis and dehydration. Has BPH. - Start IV fluids - Monitor BMP closely. - Olivo was placed by ER will keep Olivo to do accurate I&O's. Hypokalemia Severe. - IV fluids with potassium. - PO KCl. - telemetry. Teds and SCDs for now. Will hold off on chemical prophylaxis may need procedure PPI for GI prophylaxis Pramod Nix DO October 15, 2017 11:13
[2017-10-15] MEDS: POTASSIUM CHLORIDE INJ 40 MEQ in DEXTROSE 5% IN WATE 1000ML INJ 1,000 ML IV SCH ×4 (11:17→20:20)
[2017-10-15] MEDS: PIPERACIL-TAZO 4.5 GM PREMIX 100 ML IV SCH ×2 (11:17→17:19)
[2017-10-15 12:00] VITALS: BP 115/58; PULSE 94; RESP 18; TEMP 97.5; O2SAT 94
[2017-10-15] MEDS ORDERED: GADODIAMIDE PF 287 MG/ML 20 ML VIAL (for RAD MRI) IVCONTRAST ONE (12:00)
--- NOTE | 2017-10-15 13:23 | PD.CONS ---
HPI History of Present Illness This is a 72 year old male who presented to ER for weakness, brought by ambulance after being found by landlord. Reportedly he has been having falls with multiple calls to ambulance and fire department. The pt denies any medical problems. he denies diarrhea although per EMR he has been having loose stools for 10 days. he denies abd pain, liver problems. He says he vomited 1 time on the . he admits losing weight but cannot further elaborate. CT showed densities in the ok hepatis cysts vs mass, questionable gallbladder fossa stone, 1.1 stone CBD. Pt is poor historian. (Carmita Wylie) PFSH Past Medical History Enlarged prostate Past Surgical History Prostate surgery (Carmita Wylie) Coded Allergies: No Known Allergies (Unverified , 10/14/17) Family History Noncontributory Social History Patient states never smoked and never drank alcohol denies any history of substance abuse (Carmita Wylie) Review of Systems Gastrointestinal: DENIES: Abdominal pain, Diarrhea, Nausea, Vomiting Integumentary: COMPLAINS OF: Abnormal pigmentation, Jaundice Neurologic: COMPLAINS OF: Abnormal gait Except as stated in HPI: all other systems reviewed are Neg (Carmita Wylie) GI Exam Vitals I&O Vital Signs Date Time Temp Pulse Resp B/P (MAP) Pulse Ox O2 Delivery O2 Flow Rate FiO2 10/15/17 00:25 98.8 89 18 116/65 (82) 95 10/14/17 20:37 97.7 89 18 97/73 (81) 96 10/14/17 18:07 96.7 95 18 112/73 (86) 93 10/14/17 17:00 72 18 124/70 (88) 98 10/14/17 16:13 92 18 123/70 (87) 95 Room Air I/O 10/14/17 10/14/17 10/14/17 10/15/17 10/15/17 10/15/17 07:00 15:00 23:00 07:00 15:00 23:00 Intake Total 2050 ml 250 ml Output Total 1500 ml Balance 2050 ml 250 ml -1500 ml Intake IV Total 2050 ml 250 ml Output Urine Total 1500 ml # Bowel Movements 4 Imaging Last Impressions Head CT 10/14/17 1215 Signed Impressions: Service Date/Time: Saturday, October 14, 2017 13:34 - CONCLUSION: No acute intracranial findings Juan Alberto Bertrand MD Chest X-Ray 10/14/171214 Signed Impressions: Service Date/Time: Saturday, October 14, 2017 12:52 - CONCLUSION: No acute cardio pulmonary process. Jeyson Jenkins MD Gall Bladder Ultrasound 10/14/17 0000 Signed Impressions: Service Date/Time: Saturday, October 14, 2017 13:38 - CONCLUSION: 1. Nonvisualization of the gallbladder. Limited visualization of the pancreas. 2. Otherwise negative. Jeyson Jenkins MD Abdomen/Pelvis CT 10/14/17 0000 Signed Impressions: Service Date/Time: Saturday, October 14, 2017 14:27 - CONCLUSION: 1. Liver is incompletely evaluated on the noncontrasted study. Multiple hypodensities near the ok hepatis require further evaluation. These could represent multiple cysts or mass lesions. Ut or contrasted CT or MRI of the abdomen would be recommended. 2. In addition, there is a questionable stone in the expected location of the gallbladder fossa with possible additional 1.1 cm rim calcified stone in the CBD. Anatomic detail is again limited. MRCP of the abdomen could be performed for further characterization. 3. Nonobstructing 6 mm stone in the superior pole of the right kidney. 4. Prominent prostate. 5. 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 Jeyson Jenkins MD Laboratory Test 10/14/17 15:35 10/14/17 17:25 10/14/17 21:22 10/15/17 06:32 Lactic Acid Level 2.9 mmol/L Urine Color BROWN Urine Turbidity CLOUDY Urine pH 5.0 Urine Specific [place] 1.023 Urine Protein 300 OR GREATER mg/dL Urine Glucose (UA) 100 mg/dL Urine Ketones TRACE mg/dL Urine Occult Blood LARGE Urine Nitrite POS Urine Bilirubin LARGE Urine Urobilinogen GREATER/EQUAL 8.0 MG/DL Urine Leukocyte Esterase LARGE Urine RBC /hpf Urine WBC /hpf Urine Amorphous Sediment RARE Urine Bacteria MANY /hpf Urine Mucus MANY /lpf Microscopic Urinalysis Comment CULTURE INDICATED CA 19-9 Antigen 167.0 U/ML White Blood Count 13.3 TH/MM3 Red Blood Count 4.06 MIL/MM3 Hemoglobin 12.7 GM/DL Hematocrit 38.3 % Mean Corpuscular Volume 94.3 FL Mean Corpuscular Hemoglobin 31.4 PG Mean Corpuscular Hemoglobin Concent 33.3 % Red Cell Distribution Width 15.4 % Platelet Count 112 TH/MM3 Mean Platelet Volume 12.2 FL Neutrophils (%) (Auto) 88.8 % Lymphocytes (%) (Auto) 6.7 % Monocytes (%) (Auto) 4.0 % Eosinophils (%) (Auto) 0.4 % Basophils (%) (Auto) 0.1 % Neutrophils # (Auto) 11.5 TH/MM3 Lymphocytes # (Auto) 0.9 TH/MM3 Monocytes # (Auto) 0.5 TH/MM3 Eosinophils # (Auto) 0.1 TH/MM3 Basophils # (Auto) 0.0 TH/MM3 CBC Comment DIFF FINAL Differential Comment Prothrombin Time 13.7 SEC Prothromb Time International Ratio 1.4 RATIO Blood Urea Nitrogen 36 MG/DL Creatinine 0.93 MG/DL Random Glucose 154 MG/DL Total Protein 6.0 GM/DL Albumin 2.0 GM/DL Calcium Level 9.3 MG/DL Alkaline Phosphatase 197 U/L Aspartate Amino Transf (AST/SGOT) 35 U/L Alanine Aminotransferase (ALT/SGPT) 44 U/L Total Bilirubin 6.9 MG/DL Sodium Level 151 MEQ/L Potassium Level 2.9 MEQ/L Chloride Level 115 MEQ/L Carbon Dioxide Level 26.2 MEQ/L Anion Gap 10 MEQ/L Estimat Glomerular Filtration Rate 80 ML/MIN Lipase 91 U/L Tumor Marker Alpha Fetoprotein 3.9 NG/ML Carcinoembryonic Antigen 3.1 NG/ML Date/Time Source Procedure Growth Status 10/14/17 12:26 Blood Peripheral Aerobic Blood Culture - Preliminary Gram Negative Darrell Resulted 10/14/17 12:26 Anaerobic Blood Culture - Preliminary Gram Negative Darrell Resulted 10/14/17 17:25 Urine Random Urine Urine Culture Pending Received Physical Examination HEENT: PERRL; normocephalic; atraumatic; +icterus CHEST: CTA CARDIAC: RRR ABDOMEN: Soft, distended, nontender; no hepatosplenomegaly; bowel sounds are present in all four quadrants. EXTREMITIES: No clubbing, cyanosis, or edema. SKIN: Normal; no rash; + jaundice. COAL SCREENER: No focal deficits; alert and oriented times three. (Carmita Wylie) Assessment and Plan Plan ASSESSMENT - elevated LFTs, jaundice - LFTs and bili trending down. CT showed densities ok hepatis cyst vs mass, questionable gallbladder fossa stone, 1.1 stone CBD. MRCP is pending. choledocholithiasis vs liver mass. He denies pain, etoh, any GI sx other than jaundice. hx is limited. CA 19-9 elevated 167. - anemia - likely mutifactorial - leukocytosis - thrombocytopenia - plt 112 PLAN - liver w/u - consider liver bx - await MRCP report - check NH - further recs as case unfolds pt seen by myself and Dr Bonds and this note is on his behalf (Carmita Wylie) Physician Comments Patient seen and examined Agree with above Continue with current supportive care Monitor labs Patient appears to be needing an ERCP due to choledocholithiasis is noted on MRCP but thankfully his numbers are coming down I will again order MRI of the abdomen to further evaluate the mass that was noted on the CT Consideration to be made for an EUS in addition to ERCP (Vipin Bonds MD) Carmita Wylie October 15, 2017 13:23 Vipin Bonds MD October 15, 2017 22:33
--- NOTE | 2017-10-15 13:53 | RADRPT ---
EXAM DATE: 10/15/2017 12:51 PM EDT AGE/SEX: 72 years / Male INDICATIONS: Abdominal pain. CLINICAL DATA: This is the patient's subsequent encounter. Patient reports that signs and symptoms h ave been present for 2 days and indicates a pain score of 3/10. MEDICAL/SURGICAL HISTORY: . enlarged prostate Prostatectomy. COMPARISON: No prior [facility] exams available for comparison. TECHNIQUE: Multisequence, multiplanar MRI examination was performed without contrast and after the in travenous administration of 20 ml Omniscan (gadodiamide) contrast as a single exam dose. FINDINGS: LIVER: Heterogeneous signal in the liver may represent scattered areas of fatty infiltrati on. INTRAHEPATIC BILE DUCTS: Intra and extrahepatic biliary ductal dilatation COMMON BILE DUCT: Dilation of the CBD measuring almost 2 cm in diameter. A filling defect identified distally measures almost 1.2 cm in diameter characteristic of a ductal stone GALLBLADDER: Nonvisualization of the gallbladder.. PANCREAS: The pancreas appears normal in signal with no focal parenchymal abnormalities. The pancrea tic duct is normal in caliber with no filling defects, or obstructing lesions identified. MISCELLANEOUS: Spleen is borderline prominent at 12.7 cm. Benign, subcentimeter cyst in the upper po le of the left kidney. CONCLUSION: 1. Patient may be status post cholecystectomy with nonvisualization of the gallbladder. 2. Marked intra and extrahepatic biliary ductal dilatation. Filling defect in the distal CBD is conc erning for a 1.2 cm ductal stone. 3. Spleen is borderline prominent. Electronically signed by: Jeyson Jenkins MD 10/15/2017 1:52 PM EDT
--- NOTE | 2017-10-15 14:34 | MB ---
cc: Jake Morgan MD DATE: 10/15/2017 REQUESTING PHYSICIAN: Dr. Pramod Nix. REASON FOR CONSULTATION: Bacteremia. HISTORY OF PRESENT ILLNESS: This is a 72-year-old white male who presented to the emergency department on 10/14/2017 with generalized weakness. The patient was brought to the emergency department after having several falls at home and his landlord called the ambulance who brought him to the emergency department for evaluation. The patient reportedly was not eating or drinking and reportedly had urine and feces on his clothing. He is currently awake and somewhat alert and is able to give me some information regarding his recent condition. He was told me that he vomited after eating breakfast on 10/04/2017 and after that he did not really want to eat because he was afraid that he would continue to have problems with vomiting. He also mentioned that he was having falls and he fell 4 times in the days prior to admission. He states that he just dropped from standing position. He does not recall any weakness in his legs or dizziness. In the emergency department, his heart rate was 92 and his blood pressure is 123/70. His white count was elevated at 17.8. He was jaundiced and total bilirubin was 15.1 and his lactic acid level was 3.5. Urinalysis revealed too numerous to count white cells and large leukocyte esterase. Blood cultures have gram-negative alyssa with one bottle identified as Klebsiella pneumoniae. The patient is currently on IV piperacillin/tazobactam. He also received a dose of vancomycin in the emergency department. He does not appear in any distress currently. He went for cholangiopancreatography MRI earlier. The result is not yet available. Chest x-ray showed no acute cardiopulmonary disease. CT scan of the head was unremarkable. Gallbladder ultrasound showed nonvisualization of the gallbladder and limited visualization of the pancreas. Abdomen CT showed the liver to be incompletely evaluated and multiple hypodensities near the ok hepatis, which could represent cyst or mass lesions. The patient denies abdominal pain. He denies having diarrhea or dysuria. The patient lives alone. He denies chills. PAST MEDICAL HISTORY: Prostate cancer. ALLERGIES: NO KNOWN DRUG ALLERGIES. MEDICATIONS: Piperacillin/tazobactam, potassium, insulin, Protonix. SOCIAL HISTORY: No tobacco, denies alcohol, denies illicit drugs. 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 He states that his daughter came to pick him up from [place] and moved him to [place]. FAMILY HISTORY: Noncontributory. REVIEW OF SYSTEMS: Pertinents mentioned above in history of present illness. PHYSICAL EXAMINATION: GENERAL: Shows a slender male who is in no acute distress. He is awake and alert. VITAL SIGNS: Include temperature 98.8, BP 116/65, respirations 18, heart rate 89. HEENT: The head is atraumatic. Extraocular movements grossly intact. Pupils reactive to light. No icterus. Oropharynx: Moist mucosa. Poor dentition. NECK: Supple without adenopathy or swelling. LUNGS: Decreased breath sounds, bilateral. HEART: Regular S1 and S2, without audible murmurs, rubs or gallops. ABDOMEN: Bowel sounds present. soft, no tenderness appreciated. No masses palpable. RECTAL: Not performed. EXTREMITIES: No clubbing or cyanosis or edema. There are toenail erosions on several of the toes. SKIN: No rash. Chronic scattered granular dries patches of skin at extremities in a few areas of the legs at the tibias. NEUROLOGIC: No gross focal findings. PSYCHIATRIC: The patient is calm and cooperative. Affect appears somewhat flat. LABORATORY DATA: WBC 13.6, platelets 112, hemoglobin 12.7. Creatinine 0.93, BUN 36, sodium 151, total bilirubin 6.9, AST 35, ALT 44, alkaline phosphatase 197. IMPRESSION: 1. Gram-negative sepsis due to Klebsiella pneumoniae. 2. Urinary tract infection, likely cause of the sepsis. 3. Jaundice and abnormal bilirubin, likely related to gallbladder disease. RECOMMENDATIONS: 1. Continue piperacillin/tazobactam. 2. Monitor blood cultures. 3. Monitor urine culture. 4. Monitor the white blood cell count. 5. Monitor clinical response to antibiotic treatment. Thank you for this consultation. The patient's progress will be monitored and further recommendations will be made upon followup if necessary. MD MEAGAN Bean/AVILA , 01:53 PM , 02:33 PM
[2017-10-15 16:00] VITALS: BP 137/101; PULSE 73; RESP 18; TEMP 97; O2SAT 91
--- NOTE | 2017-10-15 16:01 | EKG ---
Date Performed: 10/14/2017 Time Performed: 12:32:47 PTAGE: 72 years EKG: Sinus rhythm WITH OCCASIONAL SUPRAVENTRICULAR PREMATURE COMPLEXES MODERATE T-WAVE ABNORMALITY, CONSIDER INFERIOR ISCHEMIA ABNORMAL ECG NO PREVIOUS TRACING DOCTOR: Liz Braden Interpretating Date/Time 10/15/2017 15:59:48
[2017-10-15 17:59] LABS: BICARBONATE 24.7 MEQ/L (21.0-32.0); CREATININE 0.89 MG/DL (0.60-1.30)
[2017-10-15 20:31] VITALS: BP 117/74; PULSE 119; RESP 17; TEMP 100.3; O2SAT 94
[2017-10-16 00:35] VITALS: BP 97/67; PULSE 108; RESP 17; TEMP 97.8; O2SAT 96
[2017-10-16] MEDS: PIPERACIL-TAZO 4.5 GM PREMIX 100 ML IV SCH ×3 (00:44→12:23)
[2017-10-16] MEDS: POTASSIUM CHLORIDE INJ 40 MEQ in DEXTROSE 5% IN WATE 1000ML INJ 1,000 ML IV SCH ×4 (00:44→16:32)
[2017-10-16 05:23] LABS: HEMATOCRIT 31.1 % (39.0-51.0); HEMOGLOBIN 10.3 GM/DL (13.0-17.0); MEAN CELL VOLUME 94.5 FL (80.0-100.0); MEAN CORPUSCULAR HEMOGLOBIN 31.4 PG (27.0-34.0); MEAN CORPUSCULAR HGB CONC 33.2 % (32.0-36.0); MEAN PLATELET VOLUME 12.9 FL (7.0-11.0); PLATELET COUNT 99 TH/MM3 (150-450); RED CELL DISTRIBUTION WIDTH 15.2 % (11.6-17.2); WHITE BLOOD COUNT 12.9 TH/MM3 (4.0-11.0)
[2017-10-16 06:08] LABS: FERRITIN 2200 NG/ML (26-388)
[2017-10-16 06:11] LABS: ACETAMINOPHEN LESS THAN 2.0 MCG/ML (10.0-30.0); BICARBONATE 24.6 MEQ/L (21.0-32.0); BLOOD UREA NITROGEN 28 MG/DL (7-18); CALCIUM 8.4 MG/DL (8.5-10.1); CHLORIDE 117 MEQ/L (98-107); GLOMERULAR FILTRATION RATE 73 ML/MIN (>89); GLUCOSE,RANDOM 154 MG/DL (74-106); IRON (FE) 48 MCG/DL (65-175); MAGNESIUM 2.3 MG/DL (1.5-2.5); SODIUM (NA) 150 MEQ/L (136-145); TOTAL IRON BINDING CAPACITY 146 MCG/DL (250-450)
[2017-10-16 08:00] VITALS: BP 103/67; PULSE 79; RESP 18; TEMP 97.4; O2SAT 99
[2017-10-16] MEDS: INSULIN ASPART SUPPLEMENTAL SCALE SQ SCH ×4 (08:00→21:00)
[2017-10-16] MEDS: PANTOPRAZOLE SOD 20 MG DELAYED RELEASE TAB PO SCH (09:00)
[2017-10-16 09:07] LABS: ALBUMIN 1.7 GM/DL (3.4-5.0)
[2017-10-16 09:21] LABS: DIRECT BILIRUBIN ADULT 4.4 MG/DL (0.0-0.2); INDIRECT BILIRUBIN 1.1 MG/DL (0.0-0.8); TOTAL BILIRUBIN ADULT 5.5 MG/DL (0.2-1.0); TOTAL PROTEIN 4.8 GM/DL (6.4-8.2)
[2017-10-16 12:00] VITALS: BP 104/72; PULSE 86; RESP 18; TEMP 97.3; O2SAT 99
--- NOTE | 2017-10-16 14:39 | HHI.GIFU ---
Subjective Remarks Pt resting in bed No GI complaints at this time Was unable to have ERCP today because he was not NPO (Janiya Cheng) Objective Vitals I&O Vital Signs Date Time Temp Pulse Resp B/P (MAP) Pulse Ox O2 Delivery O2 Flow Rate FiO2 10/16/17 12:00 97.3 86 18 104/72 (83) 99 10/16/17 08:00 97.4 79 18 103/67 (79) 99 10/16/17 00:35 97.8 108 17 97/67 (77) 96 10/15/17 20:31 100.3 119 17 117/74 (88) 94 10/15/17 16:00 97.0 73 18 137/101 (113) 91 I/O 10/15/17 10/15/17 10/15/17 10/16/17 10/16/17 10/16/17 07:00 15:00 23:00 07:00 15:00 23:00 Intake Total 100 ml 460 ml 580 ml Output Total 1500 ml 900 ml 1000 ml Balance -1500 ml 100 ml -440 ml -420 ml Intake Oral 360 ml 580 ml IV Total 100 ml 100 ml Output Urine Total 1500 ml 900 ml 1000 ml # Bowel Movements 4 1 2 Laboratory Laboratory Tests Test 10/15/17 17:08 10/16/17 04:06 Blood Urea Nitrogen 28 28 Creatinine 0.89 1.00 Random Glucose 117 154 Calcium Level 9.0 8.4 Sodium Level 150 150 Potassium Level 3.4 3.6 Chloride Level 117 117 Carbon Dioxide Level 24.7 24.6 Anion Gap 8 8 Estimat Glomerular Filtration Rate 84 73 Ammonia LESS THAN 10 White Blood Count 12.9 Red Blood Count 3.30 Hemoglobin 10.3 Hematocrit 31.1 Mean Corpuscular Volume 94.5 Mean Corpuscular Hemoglobin 31.4 Mean Corpuscular Hemoglobin Concent 33.2 Red Cell Distribution Width 15.2 Platelet Count 99 Mean Platelet Volume 12.9 Magnesium Level 2.3 Iron Level 48 Total Iron Binding Capacity 146 Percent Iron Saturation 33.0 Ferritin 2200 Total Bilirubin 5.5 Direct Bilirubin 4.4 Indirect Bilirubin 1.1 Aspartate Amino Transf (AST/SGOT) 28 Alanine Aminotransferase (ALT/SGPT) 34 Alkaline Phosphatase 148 Total Protein 4.8 Albumin 1.7 Acetaminophen Level LESS THAN 2.0 Hepatitis A IgM Antibody NONREACTIVE Hepatitis B Surface Antigen NONREACTIVE Hepatitis B Core IgM Antibody NONREACTIVE Hepatitis C IgG Antibody NONREACTIVE Date/Time Source Procedure Growth Status 10/14/17 12:26 Blood Peripheral Aerobic Blood Culture - Final Klebsiella Pneumoniae Complete 10/14/17 12:26 Anaerobic Blood Culture - Final Klebsiella Pneumoniae Complete 10/14/17 17:25 Urine Random Urine Urine Culture - Final Klebsiella Pneumoniae Complete Imaging Last Impressions Cholangiopancreatography MRI 10/15/17 0000 Addendum Impressions: CONCLUSION: Head CT 10/14/17 1215 Signed Impressions: Service Date/Time: Saturday, October 14, 2017 13:34 - CONCLUSION: No acute intracranial findings Juan Alberto Bertrand MD Chest X-Ray 10/14/175 Signed Impressions: Service Date/Time: Saturday, October 14, 2017 12:52 - CONCLUSION: No acute cardio pulmonary process. Jeyson Jenkins MD Gall Bladder Ultrasound 10/14/17 0000 Signed Impressions: Service Date/Time: Saturday, October 14, 2017 13:38 - CONCLUSION: 1. Nonvisualization of the gallbladder. Limited visualization of the pancreas. 2. Otherwise negative. Jeyson Jenkins MD Abdomen/Pelvis CT 10/14/17 0000 Signed Impressions: Service Date/Time: Saturday, October 14, 2017 14:27 - CONCLUSION: 1. Liver is incompletely evaluated on the noncontrasted study. Multiple hypodensities near the ok hepatis require further evaluation. These could represent multiple cysts or mass lesions. Ut or contrasted CT or MRI of the abdomen would be recommended. 2. In addition, there is a questionable stone in the expected location of the gallbladder fossa with possible additional 1.1 cm rim calcified stone in the CBD. Anatomic detail is again limited. MRCP of the abdomen could be performed for further characterization. 3. Nonobstructing 6 mm stone in the superior pole of the right kidney. 4. Prominent prostate. 5. 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 (Janiya Cheng FRANCHISE BROKER) Assessment and Plan Plan ASSESSMENT - Elevated LFTs and imaging consistent with probable choledocholithiasis MRCP (10/15) --> Marked intra and extrahepatic biliary ductal dilatation. Filling defect in the distal CBD is concerning for a 1.2 cm ductal stone. Spleen is borderline prominent. Addendum- heterogenicity of the liver which could represent scattered fatty infiltration. Prominent cystic sturctures near the port hepatis appear to represent markedly dilated intrahepatic ducts. No suspicious mass lesions or adenopathy. Pt denies history of liver issues and ETOH. Poor historian. LFTs on admission (10/14) AST-60 ALT-55 Alk phos-251 T bili-13.1 Thrombocytopenia- platelets-112 Hypoalbuminemia- albumin-1.7 Hepatitis panel negative. Ferritin-2200 Iron-48 TIBC-146 %sat-33 - Elevated CA 19-9 elevated 167. - Anemia, normocytic - likely multifactorial - Leukocytosis - Zosyn PLAN - Liver work up pending, no clear etiology for cirrhosis - HFE - ERCP tomorrow, questionable EUS - Obtain consent - NPO after MN - Further recommendations based on results of above Patient has been seen and examined by myself and Dr. Bonds and this note is written on his behalf (Janiya Cheng) Physician Comments Patient seen and examined Agree with above Continue with current supportive care Monitor labs Plan for an ERCP tomorrow X-rays discussed with Dr. jenkins no masses or tumor only dilated ducts (Vipin Bonds MD) Janiya Cheng October 16, 2017 14:39 Vipin Bonds MD October 16, 2017 22:20
--- NOTE | 2017-10-16 15:40 | HHI.IDPN ---
Note Infectious Disease Note Patient is awake. He is alert and answers questions without difficulty. Says he feels okay. Denies chills. Denies nausea, vomiting or diarrhea. Afebrile. Blood culture and urine culture has Klebsiella. Presented to the emergency department on 10/14/2017 with generalized weakness. The patient was brought to the emergency department after having several falls at home. In the emergency department, his heart rate was 92 and his blood pressure is 123 /70. His white count was elevated at 17.8. He was jaundiced and total bilirubin was 15.1 and his lactic acid level was 3.5. PAST MEDICAL HISTORY: Prostate cancer. ALLERGIES: NO KNOWN DRUG ALLERGIES. MEDICATIONS: Current Medications Medications (Trade) Dose Ordered Sig/Gabby Route PRN Reason Start Time Stop Time Status Last Admin Dose Admin Pantoprazole Sodium (Protonix) 20 mg DAILY PO 10/14/17 17:45 10/16/17 09:00 Potassium Chloride 40 meq/ Dextrose 1,020 ml @ 100 mls/hr [id number] IV 10/15/17 10:45 10/16/17 00:44 Insulin Aspart (NovoLOG SUPPLEMENTAL SCALE) 1 ACHS SLIDING SCALE SQ 10/15/17 12:00 Dextrose (D50w (Vial) Inj) 50 ml UNSCH PRN IV PUSH HYPOGLYCEMIA - SEE COMMENTS 10/15/17 11:00 Glucagon (Glucagon Inj) 1 mg UNSCH PRN OTHER HYPOGLYCEMIA-SEE COMMENTS 10/15/17 11:00 Ceftriaxone Sodium 1000 mg/ Sodium Chloride 100 ml @ 200 mls/hr Q24H IV 10/16/17 15:00 Objective: Vital Signs Date Time Temp Pulse Resp B/P (MAP) Pulse Ox O2 Delivery O2 Flow Rate FiO2 10/16/17 12:00 97.3 86 18 104/72 (83) 99 10/16/17 08:00 97.4 79 18 103/67 (79) 99 10/16/17 00:35 97.8 108 17 97/67 (77) 96 10/15/17 20:31 100.3 119 17 117/74 (88) 94 10/15/17 16:00 97.0 73 18 137/101 (113) 91 Laboratory Tests Test 10/15/17 06:32 10/16/17 04:06 White Blood Count 13.3 TH/MM3 12.9 TH/MM3 Red Blood Count 4.06 MIL/MM3 3.30 MIL/MM3 Hemoglobin 12.7 GM/DL 10.3 GM/DL Hematocrit 38.3 % 31.1 % Mean Corpuscular Volume 94.3 FL 94.5 FL Mean Corpuscular Hemoglobin 31.4 PG 31.4 PG Mean Corpuscular Hemoglobin Concent 33.3 % 33.2 % Red Cell Distribution Width 15.4 % 15.2 % Platelet Count 112 TH/MM3 99 TH/MM3 Mean Platelet Volume 12.2 FL 12.9 FL Neutrophils (%) (Auto) 88.8 % Lymphocytes (%) (Auto) 6.7 % Monocytes (%) (Auto) 4.0 % Eosinophils (%) (Auto) 0.4 % Basophils (%) (Auto) 0.1 % Neutrophils # (Auto) 11.5 TH/MM3 Lymphocytes # (Auto) 0.9 TH/MM3 Monocytes # (Auto) 0.5 TH/MM3 Eosinophils # (Auto) 0.1 TH/MM3 Basophils # (Auto) 0.0 TH/MM3 CBC Comment DIFF FINAL Differential Comment Laboratory Tests Test 10/14/17 15:35 10/14/17 21:22 10/15/17 06:32 10/15/17 17:08 Lactic Acid Level 2.9 mmol/L CA 19-9 Antigen 167.0 U/ML Blood Urea Nitrogen 36 MG/DL 28 MG/DL Creatinine 0.93 MG/DL 0.89 MG/DL Random Glucose 154 MG/DL 117 MG/DL Total Protein 6.0 GM/DL Albumin 2.0 GM/DL Calcium Level 9.3 MG/DL 9.0 MG/DL Alkaline Phosphatase 197 U/L Aspartate Amino Transf (AST/SGOT) 35 U/L Alanine Aminotransferase (ALT/SGPT) 44 U/L Total Bilirubin 6.9 MG/DL Sodium Level 151 MEQ/L 150 MEQ/L Potassium Level 2.9 MEQ/L 3.4 MEQ/L Chloride Level 115 MEQ/L 117 MEQ/L Carbon Dioxide Level 26.2 MEQ/L 24.7 MEQ/L Anion Gap 10 MEQ/L 8 MEQ/L Estimat Glomerular Filtration Rate 80 ML/MIN 84 ML/MIN Lipase 91 U/L Tumor Marker Alpha Fetoprotein 3.9 NG/ML Carcinoembryonic Antigen 3.1 NG/ML Ammonia LESS THAN 10 MCMOL/L Test 10/16/17 04:06 Blood Urea Nitrogen 28 MG/DL Creatinine 1.00 MG/DL Random Glucose 154 MG/DL Calcium Level 8.4 MG/DL Magnesium Level 2.3 MG/DL Sodium Level 150 MEQ/L Potassium Level 3.6 MEQ/L Chloride Level 117 MEQ/L Carbon Dioxide Level 24.6 MEQ/L Anion Gap 8 MEQ/L Estimat Glomerular Filtration Rate 73 ML/MIN Iron Level 48 MCG/DL Total Iron Binding Capacity 146 MCG/DL Percent Iron Saturation 33.0 % Ferritin 2200 NG/ML Total Bilirubin 5.5 MG/DL Direct Bilirubin 4.4 MG/DL Indirect Bilirubin 1.1 MG/DL Aspartate Amino Transf (AST/SGOT) 28 U/L Alanine Aminotransferase (ALT/SGPT) 34 U/L Alkaline Phosphatase 148 U/L Total Protein 4.8 GM/DL Albumin 1.7 GM/DL Microbiology Date/Time Source Procedure Growth Status 10/14/17 12:26 Blood Peripheral Aerobic Blood Culture - Final Klebsiella Pneumoniae Complete 10/14/17 12:26 Anaerobic Blood Culture - Final Klebsiella Pneumoniae Complete 10/14/17 12:15 Blood Peripheral Aerobic Blood Culture - Preliminary Klebsiella Pneumoniae Resulted 10/14/17 12:15 Anaerobic Blood Culture - Final Klebsiella Pneumoniae Resulted 10/14/17 17:25 Urine Random Urine Urine Culture - Final Klebsiella Pneumoniae Complete PHYSICAL EXAMINATION: GENERAL: No acute distress. HEENT: The head is atraumatic. Extraocular movements grossly intact. Pupils reactive to light. No icterus. Oropharynx: Moist mucosa. Poor dentition. NECK: Supple without adenopathy or swelling. LUNGS: Decreased breath sounds. No rhonchi. HEART: Regular S1 and S2, without audible murmurs, rubs or gallops. ABDOMEN: Bowel sounds present. soft, no tenderness appreciated. EXTREMITIES: No clubbing or cyanosis or edema. There are toenail erosions on several of the toes. SKIN: No rash. Chronic scattered granular dry patches of skin at extremities the tibias. NEUROLOGIC: No gross focal findings. PSYCHIATRIC: The patient is calm and cooperative. Affect appears somewhat flat. IMPRESSION: 1. Gram-negative sepsis due to Klebsiella pneumoniae. 2. Urinary tract infection due to Klebsiella. Source of sepsis. 3. Jaundice and abnormal bilirubin, likely related to gallbladder disease. RECOMMENDATIONS: 1. Continue IV ceftriaxone. Plan on 10 days treatment. 2. Monitor the white blood cell count. 3. Monitor clinical response to antibiotic treatment. Dontfraid,Jake F MD October 16, 2017 15:40
[2017-10-16 16:00] VITALS: BP 94/55; PULSE 87; RESP 18; TEMP 97.7; O2SAT 95
--- NOTE | 2017-10-16 16:13 | HHI.PR ---
Subjective Remarks The patient was resting comfortably in bed. He denied any pain. He said he has not been shaking lately. Discussed with nursing. Objective Vitals Vital Signs Date Time Temp Pulse Resp B/P (MAP) Pulse Ox O2 Delivery O2 Flow Rate FiO2 10/16/17 12:00 97.3 86 18 104/72 (83) 99 10/16/17 08:00 97.4 79 18 103/67 (79) 99 10/16/17 00:35 97.8 108 17 97/67 (77) 96 10/15/17 20:31 100.3 119 17 117/74 (88) 94 I/O 10/15/17 10/15/17 10/15/17 10/16/17 10/16/17 10/16/17 07:00 15:00 23:00 07:00 15:00 23:00 Intake Total 100 ml 460 ml 580 ml Output Total 1500 ml 900 ml 1000 ml Balance -1500 ml 100 ml -440 ml -420 ml Intake Oral 360 ml 580 ml IV Total 100 ml 100 ml Output Urine Total 1500 ml 900 ml 1000 ml # Bowel Movements 4 1 2 Result Diagram: 10/16/17 0406 10/16/17 0406 Imaging Last Impressions Cholangiopancreatography MRI 10/15/17 0000 Signed Impressions: CONCLUSION: 1. Patient may be status post cholecystectomy with nonvisualization of the gal lbladder. 2. Marked intra and extrahepatic biliary ductal dilatation. Filling defect in the distal CBD is concerning for a 1.2 cm ductal stone. 3. Spleen is borderline prominent. Head CT 10/14/171214 Signed Impressions: Service Date/Time: Saturday, October 14, 2017 13:34 - CONCLUSION: No acute intracranial findings Juan Alberto Bertrand MD Chest X-Ray 10/14/171214 Signed Impressions: Service Date/Time: Saturday, October 14, 2017 12:52 - CONCLUSION: No acute cardio pulmonary process. Jeyson Jenkins MD Gall Bladder Ultrasound 10/14/17 Signed Impressions: Service Date/Time: Saturday, October 14, 2017 13:38 - CONCLUSION: 1. Nonvisualization of the gallbladder. Limited visualization of the pancreas. 2. Otherwise negative. Jeyson Jenkins MD Abdomen/Pelvis CT 10/14/17 0000 Signed Impressions: Service Date/Time: Saturday, October 14, 2017 14:27 - CONCLUSION: 1. Liver is incompletely evaluated on the noncontrasted study. Multiple hypodensities near the ok hepatis require further evaluation. These could represent multiple cysts or mass lesions. Ut or contrasted CT or MRI of the abdomen would be recommended. 2. In addition, there is a questionable stone in the expected location of the gallbladder fossa with possible additional 1.1 cm rim calcified stone in the CBD. Anatomic detail is again limited. MRCP of the abdomen could be performed for further characterization. 3. Nonobstructing 6 mm stone in the superior pole of the right kidney. 4. Prominent prostate. 5. 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 SKIN: No rashes, Cool and dry. HEAD: Atraumatic. Normocephalic. No temporal or scalp tenderness. EYES: Pupils equal round and reactive. Extraocular motions intact. Positive icteric nausea ENT: Nose without bleeding, Throat without erythema, tonsillar hypertrophy or exudate. Uvula midline. Airway patent. NECK: Trachea midline. No JVD or lymphadenopathy. Supple, nontender, no meningeal signs. CARDIOVASCULAR: Regular rhythm without murmurs, gallops, or rubs. RESPIRATORY: Clear to auscultation. Breath sounds equal bilaterally. No wheezes , rales, or rhonchi. GASTROINTESTINAL: Abdomen soft, non-tender, nondistended. MUSCULOSKELETAL: Extremities without clubbing, cyanosis, or edema. No joint tenderness, effusion, or edema noted. NEUROLOGICAL: Awake and alert. Cranial nerves II through XII intact. Motor and sensory grossly within normal limits. Five out of 5 muscle strength in all muscle groups. Normal speech. A/P Assessment and Plan Sepsis/ bacteremia Secondary to uremia. Klebsiella pneumoniae growing in cultures. ID consult appreciated. - change Zosyn to ceftriaxone per sensitivities. 10 days antibiotics recommended by ID. - Follow LFTs. - PT eval. GI CT abdomen: Multiple hypodensities near the ok hepatis require further evaluation; These could represent multiple cysts or mass lesions; In addition, there is a questionable stone in the expected location of the gallbladder fossa with possible additional 1.1 cm rim calcified stone in the CBD. - Gastroenterology consulted. ERCP in AM. - Get alpha-fetoprotein. - soft diet for now. Acute kidney injury/ Hypernatremia/ Hypokalemia Secondary to sepsis and dehydration. Has BPH. - Start IV fluids - Monitor BMP and replete as needed. Hypothyroidism TSH was low. - check T3 and free T4. Teds and SCDs for now. Will hold off on chemical prophylaxis may need procedure PPI for GI prophylaxis Pramod Nix DO October 16, 2017 16:13
[2017-10-16] MEDS ORDERED: CHLORHEXIDINE GLUCONATE 2 % 1 PACK (2 CLOTHS) TOPICAL PRN (16:15)
[2017-10-16] MEDS ORDERED: INSULIN HUMAN REGULAR 1,000 UNITS/10 ML VIAL SQ PRN (16:15)
[2017-10-16] MEDS ORDERED: LACTATED RINGER'S 1000 ML IV PRN (16:15)
[2017-10-16] MEDS ORDERED: POVIDONE IODINE 5% (ANTISEPSIS KIT) 4 APPLICATIONS EACH NARE PRN (16:15)
[2017-10-16] MEDS ORDERED: SODIUM CHLORID 0.9% 500 ML IV PRN (16:15)
[2017-10-16] MEDS ORDERED: METOPROLOL TARTRATE 25 MG TAB PO PRN (16:15)
[2017-10-16] MEDS: cefTRIAXone INJ 1,000 MG in SODIUM CHLORIDE 0.9% INJ 100 ML IV SCH (16:40)
[2017-10-16 20:00] VITALS: BP 100/67; PULSE 88; RESP 16; TEMP 97.1; O2SAT 97
[2017-10-17] VITALS: BP 99/66; PULSE 105; RESP 18; TEMP 98; O2SAT 93
[2017-10-17] MEDS: POTASSIUM CHLORIDE INJ 40 MEQ in DEXTROSE 5% IN WATE 1000ML INJ 1,000 ML IV SCH ×6 (03:45→21:13)
[2017-10-17 08:00] VITALS: BP 106/66; PULSE 85; RESP 18; TEMP 97.2; O2SAT 96
[2017-10-17] MEDS: INSULIN ASPART SUPPLEMENTAL SCALE SQ SCH ×4 (08:00→21:00)
[2017-10-17 08:16] LABS: HEMATOCRIT 29.6 % (39.0-51.0); HEMOGLOBIN 10.1 GM/DL (13.0-17.0); MEAN CELL VOLUME 94.3 FL (80.0-100.0); MEAN CORPUSCULAR HGB CONC 33.9 % (32.0-36.0); PLATELET COUNT 79 TH/MM3 (150-450); RED BLOOD COUNT 3.14 MIL/MM3 (4.50-5.90); RED CELL DISTRIBUTION WIDTH 15.1 % (11.6-17.2); WHITE BLOOD COUNT 9.3 TH/MM3 (4.0-11.0)
[2017-10-17 08:43] LABS: ALBUMIN 1.6 GM/DL (3.4-5.0); BICARBONATE 25.5 MEQ/L (21.0-32.0); CALCIUM 8.5 MG/DL (8.5-10.1); CREATININE 0.77 MG/DL (0.60-1.30); MAGNESIUM 2.1 MG/DL (1.5-2.5)
[2017-10-17 08:45] LABS: TOTAL PROTEIN 5.1 GM/DL (6.4-8.2)
[2017-10-17] MEDS: PANTOPRAZOLE SOD 20 MG DELAYED RELEASE TAB PO SCH (10:00)
--- NOTE | 2017-10-17 11:34 | HHI.IDPN ---
Note Infectious Disease Note Patient is awake. He is alert and answers questions without difficulty. Says he feels okay. Denies chills, nausea, vomiting, diarrhea or abdominal pain. Afebrile. WBC improved. Going for ERCP. Blood culture and urine culture has Klebsiella. Presented to the emergency department on 10/14/2017 with generalized weakness. The patient was brought to the emergency department after having several falls at home. In the emergency department, his heart rate was 92 and his blood pressure is 123 /70. His white count was elevated at 17.8. He was jaundiced and total bilirubin was 15.1 and his lactic acid level was 3.5. PAST MEDICAL HISTORY: Prostate cancer. ALLERGIES: NO KNOWN DRUG ALLERGIES. MEDICATIONS: Current Medications Medications (Trade) Dose Ordered Sig/Gabby Route PRN Reason Start Time Stop Time Status Last Admin Dose Admin Pantoprazole Sodium (Protonix) 20 mg DAILY PO 10/14/17 17:45 10/17/17 10:00 Potassium Chloride 40 meq/ Dextrose 1,020 ml @ 100 mls/hr [id number] IV 10/15/17 10:45 10/17/17 03:45 Insulin Aspart (NovoLOG SUPPLEMENTAL SCALE) 1 ACHS SLIDING SCALE SQ 10/15/17 12:00 Dextrose (D50w (Vial) Inj) 50 ml UNSCH PRN IV PUSH HYPOGLYCEMIA - SEE COMMENTS 10/15/17 11:00 Glucagon (Glucagon Inj) 1 mg UNSCH PRN OTHER HYPOGLYCEMIA-SEE COMMENTS 10/15/17 11:00 Ceftriaxone Sodium 1000 mg/ Sodium Chloride 100 ml @ 200 mls/hr Q24H IV 10/16/17 15:00 10/16/17 16:40 Lactated Ringer's 1,000 ml @ 30 mls/hr Q24H PRN IV SEE LABEL COMMENTS 10/16/17 16:15 10/19/17 16:14 Sodium Chloride 500 ml @ 30 mls/hr [id number] PRN IV SEE LABEL COMMENTS 10/16/17 16:15 10/19/17 16:14 Metoprolol Tartrate (Lopressor) 25 mg [employer] PRN PO SEE LABEL COMMENTS 10/16/17 16:15 10/19/17 16:14 Povidone Iodine (Betadine 5% Antisepsis Kit) 1 applic [employer] PRN EACH NARE SEE LABEL COMMENTS 10/16/17 16:15 10/19/17 16:14 Chlorhexidine Gluconate (Chlorhexidine 2% Cloth) 3 pack [employer] PRN TOPICAL SEE LABEL COMMENTS 10/16/17 16:15 10/19/17 16:14 Insulin Human Regular (NovoLIN R INJ) See Protocol Table ... [employer]GER PRN SQ SEE PROTOCOL TABLE 10/16/17 16:15 10/19/17 16:14 Objective: Vital Signs Date Time Temp Pulse Resp B/P (MAP) Pulse Ox O2 Delivery O2 Flow Rate FiO2 10/17/17 00:00 98.0 105 18 99/66 (77) 93 10/16/17 20:00 97.1 88 16 100/67 (78) 97 10/16/17 16:00 97.7 87 18 94/55 (68) 95 10/16/17 12:00 97.3 86 18 104/72 (83) 99 Laboratory Tests Test 10/16/17 04:06 10/17/17 07:05 White Blood Count 12.9 TH/MM3 9.3 TH/MM3 Red Blood Count 3.30 MIL/MM3 3.14 MIL/MM3 Hemoglobin 10.3 GM/DL 10.1 GM/DL Hematocrit 31.1 % 29.6 % Mean Corpuscular Volume 94.5 FL 94.3 FL Mean Corpuscular Hemoglobin 31.4 PG 32.0 PG Mean Corpuscular Hemoglobin Concent 33.2 % 33.9 % Red Cell Distribution Width 15.2 % 15.1 % Platelet Count 99 TH/MM3 79 TH/MM3 Mean Platelet Volume 12.9 FL 13.0 FL Laboratory Tests Test 10/15/17 17:08 10/16/17 04:06 10/17/17 07:05 Blood Urea Nitrogen 28 MG/DL 28 MG/DL 18 MG/DL Creatinine 0.89 MG/DL 1.00 MG/DL 0.77 MG/DL Random Glucose 117 MG/DL 154 MG/DL 119 MG/DL Calcium Level 9.0 MG/DL 8.4 MG/DL 8.5 MG/DL Sodium Level 150 MEQ/L 150 MEQ/L 144 MEQ/L Potassium Level 3.4 MEQ/L 3.6 MEQ/L 3.7 MEQ/L Chloride Level 117 MEQ/L 117 MEQ/L 110 MEQ/L Carbon Dioxide Level 24.7 MEQ/L 24.6 MEQ/L 25.5 MEQ/L Anion Gap 8 MEQ/L 8 MEQ/L 9 MEQ/L Estimat Glomerular Filtration Rate 84 ML/MIN 73 ML/MIN 99 ML/MIN Ammonia LESS THAN 10 MCMOL/L Magnesium Level 2.3 MG/DL 2.1 MG/DL Iron Level 48 MCG/DL Total Iron Binding Capacity 146 MCG/DL Percent Iron Saturation 33.0 % Ferritin 2200 NG/ML Total Bilirubin 5.5 MG/DL 4.0 MG/DL Direct Bilirubin 4.4 MG/DL 3.0 MG/DL Indirect Bilirubin 1.1 MG/DL 1.0 MG/DL Aspartate Amino Transf (AST/SGOT) 28 U/L 16 U/L Alanine Aminotransferase (ALT/SGPT) 34 U/L 24 U/L Alkaline Phosphatase 148 U/L 120 U/L Total Protein 4.8 GM/DL 5.1 GM/DL Albumin 1.7 GM/DL 1.6 GM/DL Free Thyroxine 1.37 NG/DL Total Triiodothyronine 60 NG/DL Microbiology Date/Time Source Procedure Growth Status 10/14/17 12:26 Blood Peripheral Aerobic Blood Culture - Final Klebsiella Pneumoniae Complete 10/14/17 12:26 Anaerobic Blood Culture - Final Klebsiella Pneumoniae Complete 10/14/17 12:15 Blood Peripheral Aerobic Blood Culture - Final Klebsiella Pneumoniae Complete 10/14/17 12:15 Anaerobic Blood Culture - Final Klebsiella Pneumoniae Complete 10/14/17 17:25 Urine Random Urine Urine Culture - Final Klebsiella Pneumoniae Complete PHYSICAL EXAMINATION: GENERAL: No acute distress. HEENT: The head is atraumatic. Extraocular movements grossly intact. Pupils reactive to light. No icterus. Oropharynx: Moist mucosa. Poor dentition. NECK: Supple without adenopathy or swelling. LUNGS: Decreased breath sounds. No rhonchi. HEART: Regular S1 and S2, without audible murmurs, rubs or gallops. ABDOMEN: Bowel sounds present. soft, no tenderness appreciated. EXTREMITIES: No clubbing or cyanosis or edema. There are toenail erosions on several of the toes. SKIN: No rash. NEUROLOGIC: No gross focal findings. PSYCHIATRIC: pleasant, calm and cooperative. Affect appears flat. IMPRESSION: 1. Gram-negative sepsis due to Klebsiella pneumoniae. 2. Urinary tract infection due to Klebsiella. Source of sepsis. 3. Jaundice and abnormal bilirubin, likely related to gallbladder disease. RECOMMENDATIONS: 1. Continue IV ceftriaxone. Plan on 10 days treatment. 2. Monitor the white blood cell count. 3. Monitor clinical response to antibiotic treatment. Jake Morgan MD October 17, 2017 11:34
[2017-10-17] MEDS ORDERED: LIDOCAINE HCL 1% PF 5 ML SYRINGE OTHER ONE (12:00)
[2017-10-17] MEDS ORDERED: SUCCINYLCHOLINE CHLORIDE 100 MG/5 ML SYRINGE IV PUSH ONE (12:00)
[2017-10-17] MEDS ORDERED: PROPOFOL 200 MG/20 ML AMP IV ONE (12:00)
[2017-10-17] MEDS ORDERED: GLUCAGON 1 MG/ML VIAL IV PUSH ONE (16:44)
--- NOTE | 2017-10-17 17:25 | PD.PROCEDR ---
GI Procedure PROCEDURE PERFORMED ERCP with sphincterotomy and balloon extraction and biliary stent placement INDICATION FOR PROCEDURE Obstructive jaundice choledocholithiasis PROCEDURE: The procedure, risks and benefits were discussed with Patient/POA and informed consent was obtained. Anesthesia sedated Patient with Diprivan. Patient was placed in the left lateral decubitus position. ERCP: Patient was placed in a prone position. The Pentax videoscope was introduced through the oropharynx and advanced to the second portion of the duodenum where the ampula was identified. FINDINGS: The ampulla appeared to be unremarkable initially I attempted to cannulate with a sphincterotome I was unable a small needle knife sphincterotomy was performed thereafter I was able to cannulate with ease the common bile duct superior to be significantly dilated with several filling defects the sphincterotomy was extended and then using the 12 mm then the 15 mm balloon we were able to extract most stones except for one big one and a such a 10 Maltese 12 cm stent was placed and at this point the procedure was terminated of note the intrahepatics were unremarkable ESTIMATED BLOOD LOSS: None SPECIMENS REMOVED: None COMPLICATIONS: None IMPRESSION: Choledocholithiasis PLAN: Supportive care Monitor labs ERCP in 3 months Follow-up in clinic in 2-4 weeks post discharge Vipin Bonds MD October 17, 2017 17:25
--- NOTE | 2017-10-17 17:52 | RADRPT ---
EXAM DATE: 10/17/2017 5:32 PM EDT AGE/SEX: 72 years / Male INDICATIONS: Obstruction. CLINICAL DATA: This is the patient's initial encounter. Patient reports that signs and symptoms have been present for 1 day and indicates a pain score of Nonresponsive. MEDICAL/SURGICAL HISTORY: Non-responsive. Non-responsive. COMPARISON: [facility], MRCP W & W/O CONTRAST, 10/15/2017. . FINDINGS: An ERCP was performed by the ordering physician. The images demonstrate prominent dilatation of the common bile duct and central intrahepatic ducts with filling defect distally. Subsequent images demon strate retraction of a balloon through the CBD. Final image demonstrates no residual filling defect i n the common bile duct. CONCLUSION: 1. ERCP, as above. Electronically signed by: Skip Kaufman MD 10/17/2017 5:51 PM EDT
--- NOTE | 2017-10-17 18:03 | HHI.PR ---
Subjective Remarks The patient was seen after coming back from ERCP. He had no acute complaints. He was getting changed. Discussed with nursing at the bedside. Objective Vitals Vital Signs Date Time Temp Pulse Resp B/P (MAP) Pulse Ox O2 Delivery O2 Flow Rate FiO2 10/17/17 17:30 86 10 104/70 (81) 97 2 10/17/17 17:16 97.4 89 33 115/77 (90) 97 2 10/17/17 08:00 97.2 85 18 106/66 (79) 96 10/17/17 00:00 98.0 105 18 99/66 (77) 93 10/16/17 20:00 97.1 88 16 100/67 (78) 97 I/O 10/16/17 10/16/17 10/16/17 10/17/17 10/17/17 10/17/17 07:00 15:00 23:00 07:00 15:00 23:00 Intake Total 1800 ml 1200 ml 1020 ml 600 ml Output Total 1000 ml 300 ml 600 ml 450 ml Balance 800 ml 900 ml 420 ml 150 ml Intake Oral 580 ml 1200 ml IV Total 1220 ml 1020 ml Other 600 ml Output Urine Total 1000 ml 300 ml 600 ml 450 ml # Bowel Movements 2 5 2 Result Diagram: 10/17/1770410/17/17 07 Imaging Last Impressions GI Procedure 10/17/17 0000 Signed Impressions: CONCLUSION: 1. ERCP, as above. Cholangiopancreatography MRI 10/15/17 0000 Addendum Impressions: CONCLUSION: 1. Patient may be status post cholecystectomy with nonvisualization of the gal lbladder. 2. Marked intra and extrahepatic biliary ductal dilatation. Filling defect in the distal CBD is concerning for a 1.2 cm ductal stone. 3. Spleen is borderline prominent. Head CT 10/14/171214 Signed Impressions: Service Date/Time: Saturday, October 14, 2017 13:34 - CONCLUSION: No acute intracranial findings Juan Alberto Bertrand MD Chest X-Ray 10/14/171214 Signed Impressions: Service Date/Time: Saturday, October 14, 2017 12:52 - CONCLUSION: No acute cardio pulmonary process. Jeyson Jenkins MD Gall Bladder Ultrasound 10/14/17 0000 Signed Impressions: Service Date/Time: Saturday, October 14, 2017 13:38 - CONCLUSION: 1. Nonvisualization of the gallbladder. Limited visualization of the pancreas. 2. Otherwise negative. Jeyson Jenkins MD Abdomen/Pelvis CT 10/14/17 0000 Signed Impressions: Service Date/Time: Saturday, October 14, 2017 14:27 - CONCLUSION: 1. Liver is incompletely evaluated on the noncontrasted study. Multiple hypodensities near the ok hepatis require further evaluation. These could represent multiple cysts or mass lesions. Ut or contrasted CT or MRI of the abdomen would be recommended. 2. In addition, there is a questionable stone in the expected location of the gallbladder fossa with possible additional 1.1 cm rim calcified stone in the CBD. Anatomic detail is again limited. MRCP of the abdomen could be performed for further characterization. 3. Nonobstructing 6 mm stone in the superior pole of the right kidney. 4. Prominent prostate. 5. 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 SKIN: No rashes, Cool and dry. HEAD: Atraumatic. Normocephalic. No temporal or scalp tenderness. EYES: Pupils equal round and reactive. Extraocular motions intact. Positive icteric nausea ENT: Nose without bleeding, Throat without erythema, tonsillar hypertrophy or exudate. Uvula midline. Airway patent. NECK: Trachea midline. No JVD or lymphadenopathy. Supple, nontender, no meningeal signs. CARDIOVASCULAR: Regular rhythm without murmurs, gallops, or rubs. RESPIRATORY: Clear to auscultation. Breath sounds equal bilaterally. No wheezes , rales, or rhonchi. GASTROINTESTINAL: Abdomen soft, non-tender, nondistended. MUSCULOSKELETAL: Extremities without clubbing, cyanosis, or edema. No joint tenderness, effusion, or edema noted. NEUROLOGICAL: Awake and alert. Cranial nerves II through XII intact. Motor and sensory grossly within normal limits. Five out of 5 muscle strength in all muscle groups. Normal speech. Procedures ERCP A/P Assessment and Plan Sepsis/ bacteremia Secondary to uremia. Klebsiella pneumoniae growing in cultures. ID consult appreciated. - change Zosyn to ceftriaxone per sensitivities. 10 days antibiotics recommended by ID. - Follow LFTs. - PT eval. GI CT abdomen: Multiple hypodensities near the ok hepatis require further evaluation; These could represent multiple cysts or mass lesions; In addition, there is a questionable stone in the expected location of the gallbladder fossa with possible additional 1.1 cm rim calcified stone in the CBD. Gastroenterology consult appreciated. ERCP demonstrated choledocholithiasis. - Follow-up with GI. - Trend LFTs. Acute kidney injury/ Hypernatremia/ Hypokalemia Secondary to sepsis and dehydration. Has BPH. Improving. - Start IV fluids - Monitor BMP and replete as needed. Hypothyroidism TSH was low. T3 and free T4 were within normal limits. - Outpatient follow-up. Thrombocytopenia PLT count has been decreasing. - follow CBC. Teds and SCDs Pramod Nix DO October 17, 2017 18:03
[2017-10-17] MEDS: cefTRIAXone INJ 1,000 MG in SODIUM CHLORIDE 0.9% INJ 100 ML IV SCH (18:43)
[2017-10-17] MEDS ORDERED: DO NOT ADM ANY ANTICOAGULANT DRUGS PRN (19:00)
[2017-10-17 20:00] VITALS: BP 111/75; PULSE 88; RESP 18; TEMP 98; O2SAT 96
[2017-10-18] VITALS: BP 115/69; PULSE 96; RESP 18; TEMP 98.9; O2SAT 95
[2017-10-18 07:31] LABS: HEMATOCRIT 29.7 % (39.0-51.0); HEMOGLOBIN 9.9 GM/DL (13.0-17.0); MEAN CELL VOLUME 93.8 FL (80.0-100.0); MEAN CORPUSCULAR HEMOGLOBIN 31.3 PG (27.0-34.0); MEAN CORPUSCULAR HGB CONC 33.3 % (32.0-36.0); MEAN PLATELET VOLUME 12.7 FL (7.0-11.0); PLATELET COUNT 91 TH/MM3 (150-450); RED BLOOD COUNT 3.17 MIL/MM3 (4.50-5.90); RED CELL DISTRIBUTION WIDTH 15.1 % (11.6-17.2); WHITE BLOOD COUNT 7.9 TH/MM3 (4.0-11.0)
[2017-10-18 07:57] LABS: ALBUMIN 1.7 GM/DL (3.4-5.0); AST (GOT) 16 U/L (15-37); BICARBONATE 22.9 MEQ/L (21.0-32.0); BLOOD UREA NITROGEN 13 MG/DL (7-18); CALCIUM 8.8 MG/DL (8.5-10.1); CHLORIDE 112 MEQ/L (98-107); GLOMERULAR FILTRATION RATE 132 ML/MIN (>89); GLUCOSE,RANDOM 112 MG/DL (74-106); SODIUM (NA) 143 MEQ/L (136-145)
[2017-10-18 07:58] LABS: ALT (GPT) 23 U/L (12-78)
[2017-10-18] MEDS: POTASSIUM CHLORIDE INJ 40 MEQ in DEXTROSE 5% IN WATE 1000ML INJ 1,000 ML IV SCH ×2 (07:58)
[2017-10-18 08:00] VITALS: BP 110/65; PULSE 87; RESP 18; TEMP 97.4; O2SAT 97
[2017-10-18 08:00] LABS: ALKALINE PHOSPHATASE 120 U/L (45-117); TOTAL BILIRUBIN ADULT 3.6 MG/DL (0.2-1.0); TOTAL PROTEIN 5.6 GM/DL (6.4-8.2)
[2017-10-18] MEDS: INSULIN ASPART SUPPLEMENTAL SCALE SQ SCH ×3 (08:00→17:00)
[2017-10-18] MEDS: PANTOPRAZOLE SOD 20 MG DELAYED RELEASE TAB PO SCH (09:49)
[2017-10-18 10:13] VITALS: O2SAT 97
[2017-10-18 12:00] VITALS: BP 124/68; PULSE 95; RESP 18; TEMP 97.7; O2SAT 97
--- NOTE | 2017-10-18 14:35 | HHI.GIFU ---
Subjective Remarks Patient is resting in bed chief complaint gaseous tympanic abdomen Continues with IV fluids 100 cc an hour should be able to DC those in the a.m. Nausea and vomiting patient is now getting a heart healthy diet No obvious bleeding hemoglobin 9.9 (Rhonda Fisher) Objective Vitals I&O Vital Signs Date Time Temp Pulse Resp B/P (MAP) Pulse Ox O2 Delivery O2 Flow Rate FiO2 10/18/17 12:00 97.7 95 18 124/68 (86) 97 10/18/17 10:13 97 10/18/17 08:00 97.4 87 18 110/65 (80) 97 10/18/17 05:29 21 10/18/17 00:00 98.9 96 18 115/69 (84) 95 10/17/17 20:00 98.0 88 18 111/75 (87) 96 10/17/17 17:30 86 10 104/70 (81) 97 2 10/17/17 17:16 97.4 89 33 115/77 (90) 97 2 I/O 10/17/17 10/17/17 10/17/17 10/18/17 10/18/17 10/18/17 07:00 15:00 23:00 07:00 15:00 23:00 Intake Total 1020 ml 1620 ml 1000 ml Output Total 600 ml 900 ml 800 ml Balance 420 ml 720 ml -800 ml 1000 ml IV Total 1020 ml 1020 ml 1000 ml Other 600 ml Output Urine Total 600 ml 900 ml 800 ml # Bowel Movements 2 2 2 Laboratory Laboratory Tests Test 10/18/17 05:30 White Blood Count 7.9 Red Blood Count 3.17 Hemoglobin 9.9 Hematocrit 29.7 Mean Corpuscular Volume 93.8 Mean Corpuscular Hemoglobin 31.3 Mean Corpuscular Hemoglobin Concent 33.3 Red Cell Distribution Width 15.1 Platelet Count 91 Mean Platelet Volume 12.7 Blood Urea Nitrogen 13 Creatinine 0.60 Random Glucose 112 Total Protein 5.6 Albumin 1.7 Calcium Level 8.8 Alkaline Phosphatase 120 Aspartate Amino Transf (AST/SGOT) 16 Alanine Aminotransferase (ALT/SGPT) 23 Total Bilirubin 3.6 Sodium Level 143 Potassium Level 3.8 Chloride Level 112 Carbon Dioxide Level 22.9 Anion Gap 8 Estimat Glomerular Filtration Rate 132 Date/Time Source Procedure Growth Status 10/14/17 12:26 Blood Peripheral Aerobic Blood Culture - Final Klebsiella Pneumoniae Complete 10/14/17 12:26 Anaerobic Blood Culture - Final Klebsiella Pneumoniae Complete 10/14/17 17:25 Urine Random Urine Urine Culture - Final Klebsiella Pneumoniae Complete Imaging Last Impressions GI Procedure 10/17/17 0000 Signed Impressions: CONCLUSION: 1. ERCP, as above. Cholangiopancreatography MRI 10/15/17 0000 Addendum Impressions: CONCLUSION: 1. Patient may be status post cholecystectomy with nonvisualization of the gal lbladder. 2. Marked intra and extrahepatic biliary ductal dilatation. Filling defect in the distal CBD is concerning for a 1.2 cm ductal stone. 3. Spleen is borderline prominent. Head CT 10/14/17 1215 Signed Impressions: Service Date/Time: Saturday, October 14, 2017 13:34 - CONCLUSION: No acute intracranial findings Juan Alberto Bertrand MD Chest X-Ray 10/14/175 Signed Impressions: Service Date/Time: Saturday, October 14, 2017 12:52 - CONCLUSION: No acute cardio pulmonary process. Jeyson Jenkins MD Gall Bladder Ultrasound 10/14/17 0000 Signed Impressions: Service Date/Time: Saturday, October 14, 2017 13:38 - CONCLUSION: 1. Nonvisualization of the gallbladder. Limited visualization of the pancreas. 2. Otherwise negative. Jeyson Jenkins MD Abdomen/Pelvis CT 10/14/17 0000 Signed Impressions: Service Date/Time: Saturday, October 14, 2017 14:27 - CONCLUSION: 1. Liver is incompletely evaluated on the noncontrasted study. Multiple hypodensities near the ok hepatis require further evaluation. These could represent multiple cysts or mass lesions. Ut or contrasted CT or MRI of the abdomen would be recommended. 2. In addition, there is a questionable stone in the expected location of the gallbladder fossa with possible additional 1.1 cm rim calcified stone in the CBD. Anatomic detail is again limited. MRCP of the abdomen could be performed for further characterization. 3. Nonobstructing 6 mm stone in the superior pole of the right kidney. 4. Prominent prostate. 5. 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 Jeyson Jenkins MD Physical Exam HEENT: Normocephalic; atraumatic; pale skin, no obvious icterus CHEST: Even/unlabored , no obvious rhonchi CARDIAC: Distant heart sounds regular rate and rhythm ABDOMEN: Tympanic, taut, mild distended, soft, positive for gas bowel sounds active MASSAGE THERAPIST: Alert and oriented times three. (Rhonda Fisher) Assessment and Plan Plan ASSESSMENT - Elevated LFTs and imaging consistent with probable choledocholithiasis MRCP (10/15) --> Marked intra and extrahepatic biliary ductal dilatation. Filling defect in the distal CBD is concerning for a 1.2 cm ductal stone. Spleen is borderline prominent. Addendum- heterogenicity of the liver which could represent scattered fatty infiltration. Prominent cystic sturctures near the port hepatis appear to represent markedly dilated intrahepatic ducts. No suspicious mass lesions or adenopathy. Pt denies history of liver issues and ETOH. Poor historian. LFTs on admission (10/14) AST-60 ALT-55 Alk phos-251 T bili-13.1 Thrombocytopenia- platelets-112 Hypoalbuminemia- albumin-1.7 Hepatitis panel negative. Ferritin-2200 Iron-48 TIBC-146 %sat-33 - Elevated CA 19-9 elevated 167. - Anemia, normocytic - likely multifactorial - Leukocytosis - Zosyn ERCP done on 10/17/2017 findings include cannulation with common bile duct without any difficulties extracted most of the stones except for one large one. 10/18/2017 patient is fairly comfortable resting in the bed but positive for gas pain and bloating. Denies any nausea or vomiting, continues with IV fluids at 100 cc an hour. Stable hemoglobin 9.9 abdomen is soft round with active bowel sounds but no obvious tenderness. Patient will need follow-up in the office 2- 4 weeks after discharge PLAN Patient is post ERCP on 09/17/2017, continue to monitor labs and repeat ERCP in 3 months - Liver work up pending, no clear etiology for cirrhosis -Diet heart healthy -Increase mobility and activity turning in bed to release gaseous bloating -Monitor lab -Supportive care Patient has been seen and examined by myself and Dr. Bonds and this note is written on his behalf (Rhonda Fisher) Physician Comments Patient seen and examined Agree with above Continue with current supportive care Monitor labs In fact ERCP was done yesterday 10/17/17 Patient may be discharged from a GI standpoint (Vipin Bonds MD) Rhonda Fisher October 18, 2017 14:35 Vipin Bonds MD October 18, 2017 15:12
--- NOTE | 2017-10-18 15:15 | HHI.PR ---
Subjective Remarks The patient was resting comfortably in bed. He was looking forward to leaving the hospital soon. He had no acute complaints. He denied any pain. Has been tolerating a diet. Discussed with nursing. Objective Vitals Vital Signs Date Time Temp Pulse Resp B/P (MAP) Pulse Ox O2 Delivery O2 Flow Rate FiO2 10/18/17 12:00 97.7 95 18 124/68 (86) 97 10/18/17 10:13 97 10/18/17 08:00 97.4 87 18 110/65 (80) 97 10/18/17 05:29 21 10/18/17 00:00 98.9 96 18 115/69 (84) 95 10/17/17 20:00 98.0 88 18 111/75 (87) 96 10/17/17 17:30 86 10 104/70 (81) 97 2 10/17/17 17:16 97.4 89 33 115/77 (90) 97 2 I/O 10/17/17 10/17/17 10/17/17 10/18/17 10/18/17 10/18/17 06:59 14:59 22:59 06:59 14:59 22:59 Intake Total 1020 ml 1620 ml 1000 ml Output Total 600 ml 900 ml 800 ml Balance 420 ml 720 ml -800 ml 1000 ml IV Total 1020 ml 1020 ml 1000 ml Other 600 ml Output Urine Total 600 ml 900 ml 800 ml # Bowel Movements 2 2 2 Result Diagram: 10/18/17 0530 10/18/17 0530 Imaging Last Impressions GI Procedure 10/17/17 0000 Signed Impressions: CONCLUSION: 1. ERCP, as above. Cholangiopancreatography MRI 10/15/17 0000 Addendum Impressions: CONCLUSION: 1. Patient may be status post cholecystectomy with nonvisualization of the gal lbladder. 2. Marked intra and extrahepatic biliary ductal dilatation. Filling defect in the distal CBD is concerning for a 1.2 cm ductal stone. 3. Spleen is borderline prominent. Head CT 10/14/17 1215 Signed Impressions: Service Date/Time: Saturday, October 14, 2017 13:34 - CONCLUSION: No acute intracranial findings Juan Alberto Bertrand MD Chest X-Ray 10/14/175 Signed Impressions: Service Date/Time: Saturday, October 14, 2017 12:52 - CONCLUSION: No acute cardio pulmonary process. Jeyson Jenkins MD Gall Bladder Ultrasound 10/14/17 0000 Signed Impressions: Service Date/Time: Saturday, October 14, 2017 13:38 - CONCLUSION: 1. Nonvisualization of the gallbladder. Limited visualization of the pancreas. 2. Otherwise negative. Jeyson Jenkins MD Abdomen/Pelvis CT 10/14/17 0000 Signed Impressions: Service Date/Time: Saturday, October 14, 2017 14:27 - CONCLUSION: 1. Liver is incompletely evaluated on the noncontrasted study. Multiple hypodensities near the ok hepatis require further evaluation. These could represent multiple cysts or mass lesions. Ut or contrasted CT or MRI of the abdomen would be recommended. 2. In addition, there is a questionable stone in the expected location of the gallbladder fossa with possible additional 1.1 cm rim calcified stone in the CBD. Anatomic detail is again limited. MRCP of the abdomen could be performed for further characterization. 3. Nonobstructing 6 mm stone in the superior pole of the right kidney. 4. Prominent prostate. 5. 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 Jeyson Jenkins MD Objective Remarks GENERAL: Resting comfortably. SKIN: No rashes, Cool and dry. HEAD: Atraumatic. Normocephalic. No temporal or scalp tenderness. EYES: Pupils equal round and reactive. Extraocular motions intact. Positive icteric nausea ENT: Nose without bleeding, Throat without erythema, tonsillar hypertrophy or exudate. Uvula midline. Airway patent. NECK: Trachea midline. No JVD or lymphadenopathy. Supple, nontender, no meningeal signs. CARDIOVASCULAR: Regular rhythm without murmurs, gallops, or rubs. RESPIRATORY: Clear to auscultation. Breath sounds equal bilaterally. No wheezes , rales, or rhonchi. GASTROINTESTINAL: Abdomen soft, non-tender, nondistended. MUSCULOSKELETAL: Extremities without clubbing, cyanosis, or edema. No joint tenderness, effusion, or edema noted. NEUROLOGICAL: Awake and alert. Cranial nerves II through XII intact. Motor and sensory grossly within normal limits. Five out of 5 muscle strength in all muscle groups. Normal speech. Procedures ERCP A/P Assessment and Plan Sepsis/ bacteremia Secondary to uremia. Klebsiella pneumoniae growing in cultures. ID consult appreciated. - change Zosyn to ceftriaxone per sensitivities. 10 days antibiotics recommended by ID. Midline to be placed. - d/c Olivo. - PT eval. GI CT abdomen: Multiple hypodensities near the ok hepatis require further evaluation; These could represent multiple cysts or mass lesions; In addition, there is a questionable stone in the expected location of the gallbladder fossa with possible additional 1.1 cm rim calcified stone in the CBD. Gastroenterology consult appreciated. ERCP demonstrated choledocholithiasis. - Follow-up with GI. - Trend LFTs. Improving. Acute kidney injury/ Hypernatremia/ Hypokalemia Secondary to sepsis and dehydration. Has BPH. Improving. - continue IV fluids - Monitor BMP and replete as needed. Hypothyroidism TSH was low. T3 and free T4 were within normal limits. - Outpatient follow-up. Thrombocytopenia PLT count has been decreasing. - follow CBC. Stable. Teds and SCDs Discharge Planning D/c to SNF when bed available Pramod Nix DO October 18, 2017 15:15
[2017-10-18] MEDS ORDERED: PANT20 PO (15:16)
[2017-10-18] MEDS ORDERED: CEFT1INJ2 IV (15:16)
[2017-10-18 15:19] LABS: ALPHA-1-ANTITRYPSIN 300 mg/dL (100 - 190)
--- NOTE | 2017-10-18 15:20 | HHI.DCPOC ---
Discharge Care Plan Diagnosis: (1) Elevated bilirubin (2) Sepsis (3) Choledocholithiasis (4) UTI (urinary tract infection) (5) Bacteremia Goals to Promote Your Health * To prevent worsening of your condition and complications * To maintain your health at the optimal level Directions to Meet Your Goals Take your medications as prescribed Follow your dietary instruction Follow activity as directed Keep your appointments as scheduled Take your immunizations and boosters as scheduled If your symptoms worsen call your PCP, if no PCP go to Urgent Care Center or Emergency Room Smoking is Dangerous to Your Health. Avoid second hand smoke Call the 24-hour hour crisis hotline for domestic abuse at Pramod Nix DO October 18, 2017 15:20
--- NOTE | 2017-10-18 15:22 | HHI.DS ---
Discharge Summary Admission Date October 14, 2017 at 16:21 Discharge Date: October 18, 2017 Admitting Diagnosis acute sepsis, acute jauncide, cholecystitis? (1) UTI (urinary tract infection) ICD Code: N39.0 - Urinary tract infection, site not specified Diagnosis: Principal (2) Bacteremia ICD Code: R78.81 - Bacteremia Diagnosis: Principal (3) Choledocholithiasis ICD Code: K80.50 - Calculus of bile duct without cholangitis or cholecystitis without obstruction Diagnosis: Principal (4) Sepsis ICD Code: A41.9 - Sepsis, unspecified organism Status: Acute (5) Elevated bilirubin ICD Code: R17 - Unspecified jaundice Status: Acute Procedures ERCP Brief History - From Admission Patient is a 72-year-old male who states he lives by himself in an apartment, no PCP who states that about 10 days prior to admission patient noted initially having diarrhea stools brown watery S with poor p.o. appetite. Patient denies any fever or chills however feels very weak. Finally yesterday he called his landlord who in turn when saw him called ambulance and was brought in here. When asked why she is he said that he needed to be here because I do not feel good. He states that on several occasions in the past his blood blood pressures were low. On evaluation here the ER was noted to be jaundiced with elevated white count. Patient admitted for further evaluation Patient states history of prostate surgery secondary to "enlarged prostate CBC/BMP: 10/18/17 0530 10/18/17 0530 Significant Findings Laboratory Tests Test 10/15/17 17:08 10/16/17 04:06 10/17/17 07:05 10/18/17 05:30 Blood Urea Nitrogen 28 MG/DL (7-18) 28 MG/DL (7-18) Random Glucose 117 MG/DL (74-106) 154 MG/DL (74-106) 119 MG/DL (74-106) 112 MG/DL (74-106) Sodium Level 150 MEQ/L (136-145) 150 MEQ/L (136-145) Potassium Level 3.4 MEQ/L (3.5-5.1) Chloride Level 117 MEQ/L (98-107) 117 MEQ/L (98-107) 110 MEQ/L (98-107) 112 MEQ/L (98-107) Estimat Glomerular Filtration Rate 84 ML/MIN (>89) 73 ML/MIN (>89) Ammonia LESS THAN 10 MCMOL/L White Blood Count 12.9 TH/MM3 (4.0-11.0) Red Blood Count 3.30 MIL/MM3 (4.50-5.90) 3.14 MIL/MM3 (4.50-5.90) 3.17 MIL/MM3 (4.50-5.90) Hemoglobin 10.3 GM/DL (13.0-17.0) 10.1 GM/DL (13.0-17.0) 9.9 GM/DL (13.0-17.0) Hematocrit 31.1 % (39.0-51.0) 29.6 % (39.0-51.0) 29.7 % (39.0-51.0) Platelet Count 99 TH/MM3 (150-450) 79 TH/MM3 (150-450) 91 TH/MM3 (150-450) Mean Platelet Volume 12.9 FL (7.0-11.0) 13.0 FL (7.0-11.0) 12.7 FL (7.0-11.0) Calcium Level 8.4 MG/DL (8.5-10.1) Iron Level 48 MCG/DL (65-175) Total Iron Binding Capacity 146 MCG/DL (250-450) Ferritin 2200 NG/ML (26-388) Total Bilirubin 5.5 MG/DL (0.2-1.0) 4.0 MG/DL (0.2-1.0) 3.6 MG/DL (0.2-1.0) Direct Bilirubin 4.4 MG/DL (0.0-0.2) 3.0 MG/DL (0.0-0.2) Indirect Bilirubin 1.1 MG/DL (0.0-0.8) 1.0 MG/DL (0.0-0.8) Alkaline Phosphatase 148 U/L (45-117) 120 U/L (45-117) 120 U/L (45-117) Total Protein 4.8 GM/DL (6.4-8.2) 5.1 GM/DL (6.4-8.2) 5.6 GM/DL (6.4-8.2) Albumin 1.7 GM/DL (3.4-5.0) 1.6 GM/DL (3.4-5.0) 1.7 GM/DL (3.4-5.0) [id number] 300 mg/dL (100 - 190) Acetaminophen Level LESS THAN 2.0 MCG/ML Imaging Last Impressions GI Procedure 10/17/17 0000 Signed Impressions: CONCLUSION: 1. ERCP, as above. Cholangiopancreatography MRI 10/15/17 0000 Addendum Impressions: CONCLUSION: 1. Patient may be status post cholecystectomy with nonvisualization of the gal lbladder. 2. Marked intra and extrahepatic biliary ductal dilatation. Filling defect in the distal CBD is concerning for a 1.2 cm ductal stone. 3. Spleen is borderline prominent. Head CT 10/14/175 Signed Impressions: Service Date/Time: Saturday, October 14, 2017 13:34 - CONCLUSION: No acute intracranial findings Juan Alberto Bertrand MD Chest X-Ray 10/14/175 Signed Impressions: Service Date/Time: Saturday, October 14, 2017 12:52 - CONCLUSION: No acute cardio pulmonary process. Jeyson Jenkins MD Gall Bladder Ultrasound 10/14/17 0000 Signed Impressions: Service Date/Time: Saturday, October 14, 2017 13:38 - CONCLUSION: 1. Nonvisualization of the gallbladder. Limited visualization of the pancreas. 2. Otherwise negative. Jeyson Jenkins MD Abdomen/Pelvis CT 10/14/17 0000 Signed Impressions: Service Date/Time: Saturday, October 14, 2017 14:27 - CONCLUSION: 1. Liver is incompletely evaluated on the noncontrasted study. Multiple hypodensities near the ok hepatis require further evaluation. These could represent multiple cysts or mass lesions. Ut or contrasted CT or MRI of the abdomen would be recommended. 2. In addition, there is a questionable stone in the expected location of the gallbladder fossa with possible additional 1.1 cm rim calcified stone in the CBD. Anatomic detail is again limited. MRCP of the abdomen could be performed for further characterization. 3. Nonobstructing 6 mm stone in the superior pole of the right kidney. 4. Prominent prostate. 5. 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 SKIN: No rashes, Cool and dry. HEAD: Atraumatic. Normocephalic. No temporal or scalp tenderness. EYES: Pupils equal round and reactive. Extraocular motions intact. Positive icteric nausea ENT: Nose without bleeding, Throat without erythema, tonsillar hypertrophy or exudate. Uvula midline. Airway patent. NECK: Trachea midline. No JVD or lymphadenopathy. Supple, nontender, no meningeal signs. CARDIOVASCULAR: Regular rhythm without murmurs, gallops, or rubs. RESPIRATORY: Clear to auscultation. Breath sounds equal bilaterally. No wheezes , rales, or rhonchi. GASTROINTESTINAL: Abdomen soft, non-tender, nondistended. MUSCULOSKELETAL: Extremities without clubbing, cyanosis, or edema. No joint tenderness, effusion, or edema noted. NEUROLOGICAL: Awake and alert. Cranial nerves II through XII intact. Motor and sensory grossly within normal limits. Five out of 5 muscle strength in all muscle groups. Normal speech. Hospital Course Sepsis/ bacteremia Secondary to uremia. Klebsiella pneumoniae growing in both urine and blood cultures. ID was consulted. We changed Zosyn to ceftriaxone per sensitivities. 10 days of antibiotics were recommended by ID. Midline to be placed and he will be discharged on IV ceftriaxone. He will follow up with his PCP. GI CT abdomen: Multiple hypodensities near the ok hepatis require further evaluation; These could represent multiple cysts or mass lesions; In addition, there is a questionable stone in the expected location of the gallbladder fossa with possible additional 1.1 cm rim calcified stone in the CBD. Gastroenterology was consulted. ERCP demonstrated choledocholithiasis. He will follow-up with GI as an outpt. He will have a repeat CMP in 3-5 days. Acute kidney injury/ Hypernatremia/ Hypokalemia Resolved with IV fluids. He will have a repeat CMP in 3-5 days. Hypothyroidism TSH was low. T3 and free T4 were within normal limits. He will have outpatient follow-up with his PCP. Thrombocytopenia Platelet count has been decreasing but has been stable. He will have a CBC repeated in 3-5 days and will follow up with his PCP. Pt Condition on Discharge: Stable Discharge Disposition: Discharge to SNF Discharge Time: > 30 minutes Discharge Instructions DIET: Follow Instructions for: Heart Healthy Diet Activities you can perform: Weight Bearing as Delmy Follow up Referrals: Gastroenterology - 2 Weeks with Vipin Bonds MD PCP Follow-up - 1 Week New Orders: CBC NO DIFF - 3-5 Days COMP MET PROF (CMP) - 3-5 Days New Medications: Ceftriaxone Inj (Ceftriaxone Inj) 1 Gm/50 Ml Bagp 1 GM IV Q24H for Infection, #7 BAG 0 Refills Pantoprazole (Protonix) 20 Mg Tab 20 MG PO DAILY for Stomach, #30 TAB Pramod Nix DO October 18, 2017 15:22
--- NOTE | 2017-10-18 15:47 | HHI.IDPN ---
Note Infectious Disease Note Patient is awake and alert. Affect still appears flat and withdrawn. Says he feels okay. Denies chills, nausea, vomiting, diarrhea or abdominal pain. Afebrile. Blood culture and urine culture has Klebsiella. Presented to the emergency department on 10/14/2017 with generalized weakness. The patient was brought to the emergency department after having several falls at home. In the emergency department, his heart rate was 92 and his blood pressure is 123 /70. His white count was elevated at 17.8. He was jaundiced and total bilirubin was 15.1 and his lactic acid level was 3.5. PAST MEDICAL HISTORY: Prostate cancer. ALLERGIES: NO KNOWN DRUG ALLERGIES. MEDICATIONS: Vital Signs Date Time Temp Pulse Resp B/P (MAP) Pulse Ox O2 Delivery O2 Flow Rate FiO2 10/18/17 12:00 97.7 95 18 124/68 (86) 97 10/18/17 10:13 97 10/18/17 08:00 97.4 87 18 110/65 (80) 97 10/18/17 05:29 21 10/18/17 00:00 98.9 96 18 115/69 (84) 95 10/17/17 20:00 98.0 88 18 111/75 (87) 96 10/17/17 17:30 86 10 104/70 (81) 97 2 10/17/17 17:16 97.4 89 33 115/77 (90) 97 2 Laboratory Tests Test 10/17/17 07:05 10/18/17 05:30 White Blood Count 9.3 TH/MM3 7.9 TH/MM3 Red Blood Count 3.14 MIL/MM3 3.17 MIL/MM3 Hemoglobin 10.1 GM/DL 9.9 GM/DL Hematocrit 29.6 % 29.7 % Mean Corpuscular Volume 94.3 FL 93.8 FL Mean Corpuscular Hemoglobin 32.0 PG 31.3 PG Mean Corpuscular Hemoglobin Concent 33.9 % 33.3 % Red Cell Distribution Width 15.1 % 15.1 % Platelet Count 79 TH/MM3 91 TH/MM3 Mean Platelet Volume 13.0 FL 12.7 FL Laboratory Tests Test 10/17/17 07:05 10/18/17 05:30 Blood Urea Nitrogen 18 MG/DL 13 MG/DL Creatinine 0.77 MG/DL 0.60 MG/DL Random Glucose 119 MG/DL 112 MG/DL Total Protein 5.1 GM/DL 5.6 GM/DL Albumin 1.6 GM/DL 1.7 GM/DL Calcium Level 8.5 MG/DL 8.8 MG/DL Magnesium Level 2.1 MG/DL Alkaline Phosphatase 120 U/L 120 U/L Aspartate Amino Transf (AST/SGOT) 16 U/L 16 U/L Alanine Aminotransferase (ALT/SGPT) 24 U/L 23 U/L Total Bilirubin 4.0 MG/DL 3.6 MG/DL Direct Bilirubin 3.0 MG/DL Sodium Level 144 MEQ/L 143 MEQ/L Potassium Level 3.7 MEQ/L 3.8 MEQ/L Chloride Level 110 MEQ/L 112 MEQ/L Carbon Dioxide Level 25.5 MEQ/L 22.9 MEQ/L Anion Gap 9 MEQ/L 8 MEQ/L Estimat Glomerular Filtration Rate 99 ML/MIN 132 ML/MIN Indirect Bilirubin 1.0 MG/DL Microbiology Date/Time Source Procedure Growth Status 10/14/17 12:26 Blood Peripheral Aerobic Blood Culture - Final Klebsiella Pneumoniae Complete 10/14/17 12:26 Anaerobic Blood Culture - Final Klebsiella Pneumoniae Complete 10/14/17 12:15 Blood Peripheral Aerobic Blood Culture - Final Klebsiella Pneumoniae Complete 10/14/17 12:15 Anaerobic Blood Culture - Final Klebsiella Pneumoniae Complete 10/14/17 17:25 Urine Random Urine Urine Culture - Final Klebsiella Pneumoniae Complete PHYSICAL EXAMINATION: GENERAL: No acute distress. HEENT: The head is atraumatic. Extraocular movements grossly intact. Pupils reactive to light. No icterus. Oropharynx: Moist mucosa. Poor dentition. NECK: Supple without adenopathy or swelling. LUNGS: Decreased breath sounds. HEART: Regular S1 and S2, without audible murmurs, rubs or gallops. ABDOMEN: Bowel sounds present. soft, no tenderness. EXTREMITIES: No clubbing or cyanosis or edema. There are toenail erosions on several of the toes. SKIN: No rash. NEUROLOGIC: No gross focal findings. PSYCHIATRIC: pleasant, calm and cooperative. IMPRESSION: 1. Gram-negative sepsis due to Klebsiella pneumoniae. 2. Urinary tract infection due to Klebsiella. Source of sepsis. 3. Jaundice and abnormal bilirubin, likely related to gallbladder disease. Post ERCP and removal of gallstones. RECOMMENDATIONS: Continue IV ceftriaxone for 10 days treatment. I was called by vascular regarding placement of a midline catheter. Okay to place the midline catheter. Patient is stable and responding to antibiotic treatment and is afebrile. Because it was a gram-negative bacteria in both blood and urine same Blood culture is not necessary. Jake Morgan MD October 18, 2017 15:47
[2017-10-18] MEDS: cefTRIAXone INJ 1,000 MG in SODIUM CHLORIDE 0.9% INJ 100 ML IV SCH (16:21)
[2017-10-18 18:07] VITALS: O2SAT 97
[2017-10-21 03:49] LABS: MITOCHONDRIAL ABS LESS THAN 20.0 U (<=20.0)
[2017-10-21 19:52] LABS: CERULOPLASMIN 38 mg/dL (18-36)
== END 2017-10-18 18:19 | DRG 872 ==
LOC: NEPE 12:03 → NEDH 16:21 → N07B 17:36
PROVIDERS: ADMIT Hospitalist; ATTEND Hospitalist
PROC: 0F798DZ Dilation of Common Bile Duct with Intraluminal Device, Via Natural or Artificial Opening Endoscopic (ICD-10-PCS; 2017-10-17)
PROC: 0FC98ZZ Extirpation of Matter from Common Bile Duct, Via Natural or Artificial Opening Endoscopic (ICD-10-PCS; principal; 2017-10-17 15:39)
PROC: 05HY33Z Insertion of Infusion Device into Upper Vein, Percutaneous Approach (ICD-10-PCS; 2017-10-18)
DX: A41.59 Other Gram-negative sepsis (principal); N17.9 Acute kidney failure, unspecified; E87.0 Hyperosmolality and hypernatremia; R64 Cachexia; D69.6 Thrombocytopenia, unspecified; E87.2 Acidosis; N39.0 Urinary tract infection, site not specified; R16.0 Hepatomegaly, not elsewhere classified; K80.50 Calculus of bile duct without cholangitis or cholecystitis without obstruction; R29.6 Repeated falls; R62.7 Adult failure to thrive; R65.20 Severe sepsis without septic shock; N40.0 Benign prostatic hyperplasia without lower urinary tract symptoms; E86.0 Dehydration; E87.6 Hypokalemia; D64.9 Anemia, unspecified; E03.9 Hypothyroidism, unspecified; Z85.46 Personal history of malignant neoplasm of prostate
CPT/HCPCS: 36569; 70450; 71045; 74176; 74183; 74330; 76377; 76705; 76937; 80048; 80053; 80074; 80076; 80307; 81001; 81256; 82103; 82105; 82140; 82248; 82378; 82390; 82550; 82552; 82728; 82948; 83520; 83540; 83550; 83605; 83690; 83735; 84439; 84443; 84480; 84484; 85025; 85027; 85610; 85730; 86038; 86255; 86301; 86850; 86900; 86901; 87040; 87077; 87086; 87186; 87205; 93005; 96365; 96366; 96367; A9579; C2625; J0330; J0696; J2543; J3370; J3430; J3480; J7030; J7050; J7070